=== PATIENT | male | born 1955 | race Caucasian/White ===

== ENCOUNTER 2022-11-15 10:08 | Outpatient (OUT) | payer MEDICARE, SELFPAY ==
[2022-11-16 04:07] LABS: PSA, Free 0.56 ng/mL; Prostate Specific Ag 3.3 ng/mL (0.0-4.0)
== END 2022-11-15 10:09 | disposition home or self-care (01) ==
LOC: LAB 10:11
PROVIDERS: PCP Family Medicine; Visit Provider Urology
DX: N40.0 Benign prostatic hyperplasia without lower urinary tract symptoms (principal)
CPT/HCPCS: 36415; 84153; 84154

== ENCOUNTER 2023-01-31 10:43 | Emergency (ER) | payer MEDICARE, SELFPAY ==
[2023-01-31 10:51] VITALS: BP 132/70; PULSE 71; RESP 18; TEMP 36.7; O2SAT 96; BMI 30.9
--- NOTE | 2023-01-31 11:21 | CT_ITS ---
The [address] [address] Patient Name: GERI ROCA MRN: [id number] date: 1955 Sex: M Assigned Patient Location: ER Current Patient Location: Accession/Order Number: [id number] Exam Date: 01/31/2023 12:00 Report Date: 01/31/2023 12:23 At the request of: STEVE JACKSON Procedure: CT abdomen pelvis wo con EXAM: CT scan of the abdomen and pelvis without contrast. Dose reduction technique used: Automated exposure control and/or adjustment of the mA and/or kV according to patient size and/or use of iterative reconstruction technique. REASON FOR EXAM: left flank pain, r/o stone COMPARISON: None FINDINGS: Left renal pelvis 4 mm stone without hydronephrosis. Enlarged prostate. Multiple hepatic cysts. Small fat-containing left inguinal hernia. Colonic diverticulosis. Focal abdominal aortic ectasia measuring up to 2.7 cm maximal caliber. No ureteral or bladder calculi. No hydronephrosis. Normal appendix. No free fluid in the abdomen or pelvis. No free intraperitoneal air. No dilated or thickened loops of small bowel or colon. Liver, pancreas, spleen, bilateral kidneys, and bilateral adrenal glands are otherwise unremarkable within the limitations of noncontrast CT. No lymphadenopathy in the abdomen or pelvis. Remainder unremarkable. CT/CT abdomen pelvis wo con IMPRESSION: 1. No acute abnormalities in the abdomen or pelvis. 2. Left renal pelvis 4 mm stone without hydronephrosis. Electronically authenticated by: MAGALY BARRON Date: 01/31/2023 12:23
--- NOTE | 2023-01-31 11:22 | ED_ITS ---
HPI - Male Genitourinary General Chief complaint: Abdominal Pain Stated complaint: BACK PAIN Time Seen by Provider: 01/31/23 11:07 Source: patient Mode of arrival: walk-in History of Present Illness HPI Narrative: 67-year-old male presents for left flank pain and blood in the urine. Four days ago he had a minor incident where he stumbled backwards and hit his left back on the sill of a window. he didn't think much of it then. Subsequently he saw some blood in his urine and has some pain in his left flank that radiates to his left testicle. He also complains of a cystitis left upper eyelid. The pain comes and goes. He's never had a kidney stone. Related Data Previous Rx's Medication Instructions Recorded acetaminophen 300 mg-codeine 30 mg 1 tab PO Q6H PRN pain #20 tabs 01/31/23 tablet cephalexin 500 mg capsule 500 mg PO TID 7 days #21 caps 01/31/23 tamsulosin 0.4 mg capsule (Flomax) 0.4 mg PO DAILY #7 caps 01/31/23 Allergies Allergy/AdvReac Type Severity Reaction Status Date / Time No Known Drug Allergies Allergy Verified 01/31/23 10:51 Review of Systems ROS Narrative A ten point review of systems is negative except as noted above. PFSH PFSH Social History Smoking status: Former smoker Exam Narrative Exam Narrative: Nurses note and vital signs reviewed and patient is not hypoxic. General: The patient appears well and in no apparent distress. Patient is resting comfortably on cart. Skin: Warm, dry, no pallor noted. There is no rash noted. Head: Normocephalic, atraumatic Eye: Normal conjunctiva, no drainage Ears, Nose, Mouth, and Throat: oral mucosa is moist. Nares patent. Cardiovascular: Regular Rate and Rhythm Respiratory: Patient is in no distress, no accessory muscle use, lungs are clear to auscultation, no wheezing, rales or rhonchi Back: non-tender, no CVA tenderness there is no bruise rash or abrasion GI: soft and nontender Musculoskeletal: The patient has no evidence of calf tenderness, no pitting edema, symmetrical pulses noted bilaterally Neurological: A&O, normal speech Psychiatric: Cooperative Constitutional Vital Signs, click to edit/add: Last Vital Signs Temp 98.1 F 01/31/23 10:51 Pulse 71 01/31/23 10:51 Resp 18 01/31/23 10:51 BP 132/70 01/31/23 10:51 Pulse Ox 96 01/31/23 10:51 O2 Del Method Room Air 01/31/23 10:51 Course Vital Signs Vital signs: Vital Signs Temperature 98.1 F 01/31/23 10:51 Pulse Rate 71 01/31/23 10:51 Respiratory Rate 18 01/31/23 10:51 Blood Pressure 132/70 01/31/23 10:51 Pulse Oximetry 96 01/31/23 10:51 Oxygen Delivery Method Room Air 01/31/23 10:51 Temperature 98.1 F 01/31/23 10:51 Pulse Rate 71 01/31/23 10:51 Respiratory Rate 01/31/23 10:51 Blood Pressure 132/70 01/31/23 10:51 Pulse Oximetry 96 01/31/23 10:51 Oxygen Delivery Method Room Air 01/31/23 10:51 MDM - Male Genitourinary MDM Narrative Medical decision making narrative: 4 mm renal pelvis stone identified. A few white cells or in the urine and he'll be placed on Keflex and Tylenol No. 3 and Flomax. He'll follow-up with urology. Treatment diagnosis and follow-up were discussed with the patient. Differential Diagnosis Differential diagnosis: Likely urinary tract infection, acute retention of urine and other (kidney stone or nephritis) Lab Data Attestation: I reviewed the patient's lab results. Labs: Lab Results 01/31/23 Range/Units 11:50 WBC 8.3 (4.0-11.0) 10^3/uL RBC 6.12 H (4.70-6.10) 10^6/uL Hgb 18.8 H (14.0-18.0) g/dL Hct 55.2 H (42.0-54.0) % MCV 90.2 (80.0-94.0) fL MCH 30.7 (25.9-34.0) pg MCHC 34.1 (29.9-35.2) g/dL RDW 13.2 (11.0-15.0) % Plt Count 282 (150-450) 10^3/uL MPV 9.7 (9.5-13.5) fL Neut % (Auto) 53.3 (43.0-75.0) % Lymph % (Auto) 33.5 (20.5-60.0) % [place] % (Auto) 10.5 (1.7-12.0) % Eos % (Auto) 1.2 (0.9-7.0) % Baso % (Auto) 1.1 (0.2-2.0) % Neut # (Auto) 4.4 (1.4-6.5) 10^3/uL Lymph # (Auto) 2.8 (1.2-3.8) 10^3/uL [place] # (Auto) 0.9 H (0.3-0.8) 10^3/uL Eos # (Auto) 0.1 (0.0-0.7) 10^3/uL Baso # (Auto) 0.1 (0.0-0.1) 10^3/uL Abs Immat Gran (auto) 0.03 (0.00-0.03) 10^3/uL Imm/Tot Granulo (auto) 0.4 (0.0-0.5) % Sodium 144 (136-145) mmol/L Potassium 4.0 (3.5-5.1) mmol/L Chloride 104 (98-107) mmol/L Carbon Dioxide 26.0 (21.0-32.0) mmol/L Anion Gap 18.0 BUN 23.0 H (7.0-18.0) mg/dL Creatinine 1.13 (0.70-1.30) mg/dL Est GFR ( Amer) >60 (>=60) Est GFR (Non-Af Amer) >60 (>=60) BUN/Creatinine Ratio 20.4 Glucose 94 (74-106) mg/dL Calcium 8.6 (8.5-10.1) mg/dL Urine Color Dk. brown (YELLOW) Urine Clarity Slightly cloudy A (CLEAR) Urine pH 5.0 (5.0-9.0) Ur Specific [place] >=1.030 A (1.005-1.025) Urine Protein 100 A (NEG/TRACE) mg/dL Urine Glucose (UA) Negative (NEGATIVE) mg/dL Urine Ketones Negative (NEGATIVE) mg/dL Urine Occult Blood Large A (NEGATIVE) Urine Nitrite Positive A (NEGATIVE) Urine Bilirubin Negative (NEGATIVE) Urine Urobilinogen 1.0 (0.2-1.0) EU/dL Ur Leukocyte Esterase Negative (NEGATIVE) Urine RBC >100 A (0-2) #/HPF Urine WBC 5-10 A (NONE SEEN) #/HPF Ur Squamous Epith Cells None seen (NONE/RARE) #/LPF Urine Crystals None seen (None Seen) #/HPF Urine Bacteria None seen (NONE SEEN) #/HPF Urine Casts None seen (NONE SEEN) #/LPF Urine Mucus None seen (NONE SEEN) Ur Culture Indicated? Yes Imaging Data CT scan - abdomen: Radiologist's impression: Procedure: CT abdomen pelvis wo con EXAM: CT scan of the abdomen and pelvis without contrast. Dose reduction technique used: Automated exposure control and/or adjustment of the mA and/or kV according to patient size and/or use of iterative reconstruction technique. REASON FOR EXAM: left flank pain, r/o stone COMPARISON: None FINDINGS: Left renal pelvis 4 mm stone without hydronephrosis. Enlarged prostate. Multiple hepatic cysts. Small fat-containing left inguinal hernia. Colonic diverticulosis. Focal abdominal aortic ectasia measuring up to 2.7 cm maximal caliber. No ureteral or bladder calculi. No hydronephrosis. Normal appendix. No free fluid in the abdomen or pelvis. No free intraperitoneal air. No dilated or thickened loops of small bowel or colon. Liver, pancreas, spleen, bilateral kidneys, and bilateral adrenal glands are otherwise unremarkable within the limitations of noncontrast CT. No lymphadenopathy in the abdomen or pelvis. Remainder unremarkable. IMPRESSION: 1. No acute abnormalities in the abdomen or pelvis. 2. Left renal pelvis 4 mm stone without hydronephrosis. Electronically authenticated by: MAGALY BARRON Date: 01/31/2023 Discharge Plan Discharge Chief Complaint: Abdominal Pain Clinical Impression: Calculus of kidney Patient Disposition: Home, Self-Care Time of Disposition Decision: 13:45 Condition: Good Mode of Transportation: Private Vehicle Prescriptions / Home Meds: New acetaminophen-codeine 300-30 mg tablet 1 tab PO Q6H PRN (Reason: pain) Qty: 20 0RF tamsulosin [Flomax] 0.4 mg capsule 0.4 mg PO DAILY Qty: 7 0RF cephalexin 500 mg capsule 500 mg PO TID 7 Days Qty: 21 0RF Instructions: Kidney Stones (ED) Additional Instructions: follow-up with Dr. Rios Stand Alone Forms: Portal Instructions Referrals: Justino Sheriff MD [Primary Care Provider] - 1 week
[2023-01-31 11:57] LABS: Basophils Absolute Auto 0.1 10^3/uL (0.0-0.1); Basophils Percent Auto 1.1 % (0.2-2.0); Eosinophils Absolute Auto 0.1 10^3/uL (0.0-0.7); Eosinophils Percent Auto 1.2 % (0.9-7.0); Hematocrit 55.2 % (42.0-54.0); Hemoglobin 18.8 g/dL (14.0-18.0); Immature Granulocytes Abs Auto 0.03 10^3/uL (0.00-0.03); Immature Granulocytes Pct Auto 0.4 % (0.0-0.5); Lymphocytes Absolute Auto 2.8 10^3/uL (1.2-3.8); Lymphocytes Percent Auto 33.5 % (20.5-60.0); Mean Corpuscular HGB Conc 34.1 g/dL (29.9-35.2); Mean Corpuscular Hemoglobin 30.7 pg (25.9-34.0); Mean Corpuscular Volume 90.2 fL (80.0-94.0); Mean Platelet Volume 9.7 fL (9.5-13.5); Monocytes Absolute Auto 0.9 10^3/uL (0.3-0.8); Monocytes Percent Auto 10.5 % (1.7-12.0); Neutrophils Absolute Auto 4.4 10^3/uL (1.4-6.5); Neutrophils Percent Auto 53.3 % (43.0-75.0); Platelet Count 282 10^3/uL (150-450); Red Blood Count 6.12 10^6/uL (4.70-6.10); Red Cell Distribution Width 13.2 % (11.0-15.0); White Blood Count 8.3 10^3/uL (4.0-11.0)
[2023-01-31 12:00] LABS: Bilirubin Urine NEGATIVE (NEGATIVE); Blood Urine LARGE (NEGATIVE); Color Urine DK. BROWN (YELLOW); Glucose Urine UA NEGATIVE (NEGATIVE); Ketones Urine NEGATIVE (NEGATIVE); Leukocyte Esterase Urine NEGATIVE (NEGATIVE); Nitrite Urine POSITIVE (NEGATIVE); Protein Urine 100 mg/dL (NEG/TRACE); Specific Gravity Urine >=1.030 (1.005-1.025)
[2023-01-31 12:01] LABS: Clarity Urine SLIGHTLY CLOUDY (CLEAR); Urine Microscopic Indicated YES
[2023-01-31 12:09] LABS: Bacteria Urine NONE SEEN #/HPF (NONE SEEN); Cast Seen? NONE SEEN #/LPF (NONE SEEN); Crystals Seen? None Seen #/HPF (None Seen); Mucus Urine NONE SEEN (NONE SEEN); RBC Urine >100 #/HPF (0-2); Squamous Epithelial Cell Urine NONE SEEN #/LPF (NONE/RARE); Urine Culture Indicated YES
[2023-01-31 12:23] LABS: BUN Creatinine Ratio 20.4; Calcium 8.6 mg/dL (8.5-10.1); Chloride 104 mmol/L (98-107); Estimated GFR (African America >60 (>=60); Estimated GFR (Non-African Ame >60 (>=60); Glucose 94 mg/dL (74-106); Sodium 144 mmol/L (136-145)
== END 2023-01-31 13:59 | disposition home or self-care (01) ==
PROVIDERS: Emergency Provider Emergency Medicine; PCP Family Medicine
DX: N20.0 Calculus of kidney (principal); Z87.891 Personal history of nicotine dependence
CPT/HCPCS: 36415; 74176; 80048; 81001; 85025; 87086; 99284

== ENCOUNTER 2023-02-06 13:54 | Emergency (ER) | payer MEDICARE, SELFPAY ==
[2023-02-06 13:57] VITALS: BP 146/90; PULSE 80; RESP 16; TEMP 36.7; O2SAT 98; BMI 31.9
--- NOTE | 2023-02-06 14:17 | ED.GENADUL1 ---
HPI - General Adult General Chief complaint: Back Pain/Injury Stated complaint: FLANK PAIN Time Seen by Provider: 02/06/23 13:59 History of Present Illness HPI narrative: 67-year-old male presents for left flank pain. He was here about six days ago and was diagnosed with a 4 mm kidney stone. He hasn't seen a stone and he hasn't seen his urologist either. He continues to have pain which is moderate. No gross hematuria. Related Data Previous Rx's Medication Instructions Recorded acetaminophen 300 mg-codeine 30 mg 1 tab PO Q6H PRN pain #20 tabs 01/31/23 tablet cephalexin 500 mg capsule 500 mg PO TID 7 days #21 caps 01/31/23 erythromycin 5 mg/gram (0.5 %) eye 1 applic ophthalmic (eye) TID #3.5 01/31/23 ointment grams tamsulosin 0.4 mg capsule (Flomax) 0.4 mg PO DAILY #7 caps 01/31/23 tamsulosin 0.4 mg capsule (Flomax) 0.4 mg PO DAILY #7 caps 02/06/23 Allergies Allergy/AdvReac Type Severity Reaction Status Date / Time No Known Drug Allergies Allergy Verified 01/31/23 10:51 Review of Systems ROS Narrative A ten point review of systems is negative except as noted above. PFSH PFSH Social History Smoking status: Former smoker Exam Narrative Exam Narrative: Nurses note and vital signs reviewed and patient is not hypoxic. General: The patient appears well and in no apparent distress. Patient is resting comfortably on cart. Skin: Warm, dry, no pallor noted. There is no rash noted. Head: Normocephalic, atraumatic Eye: Normal conjunctiva, no drainage Ears, Nose, Mouth, and Throat: oral mucosa is moist. Nares patent. Cardiovascular: Regular Rate and Rhythm Respiratory: Patient is in no distress, no accessory muscle use, lungs are clear to auscultation, no wheezing, rales or rhonchi Back: non-tender, no CVA tenderness bilaterally to percussion. no flank rash GI: no tenderness to palpation, no masses appreciated. No rebound, guarding, or rigidity noted. Musculoskeletal: The patient has no evidence of calf tenderness, no pitting edema, symmetrical pulses noted bilaterally Neurological: A&O, normal speech Psychiatric: Cooperative Constitutional Vital Signs, click to edit/add: Last Vital Signs Temp 98.1 F 02/06/23 13:57 Pulse 72 02/06/23 15:40 Resp 20 02/06/23 15:40 BP 155/87 H 02/06/23 15:40 Pulse Ox 95 02/06/23 15:40 O2 Del Method Room Air 02/06/23 13:57 Course Vital Signs Vital signs: Vital Signs Temperature 98.1 F 02/06/23 13:57 Pulse Rate 80 02/06/23 13:57 Respiratory Rate 16 02/06/23 13:57 Blood Pressure 146/90 H 02/06/23 13:57 Pulse Oximetry 98 02/06/23 13:57 Oxygen Delivery Method Room Air 02/06/23 13:57 Temperature 98.1 F 02/06/23 13:57 Pulse Rate 72 02/06/23 15:40 Respiratory Rate 20 02/06/23 15:40 Blood Pressure 155/87 H 02/06/23 15:40 Pulse Oximetry 95 02/06/23 15:40 Oxygen Delivery Method Room Air 02/06/23 13:57 Medical Decision Making MDM Narrative Medical decision making narrative: the previously identified kidney stone is now in the distal ureter. He was given IV fluids and IV Toradol. He was prescribed Flomax and has pain medicine at home. He'll call his urologist again in the morning for follow-up. He doesn't require admission the hospital at this point. Treatment diagnosis and follow-up were discussed with the patient. Differential Diagnosis Differential Diagnosis: kidney stone, hydronephrosis, urinary tract infection, pyelonephritis Lab Data Lab results reviewed: Yes I reviewed the patient's lab results Labs: Lab Results 02/06/23 Range/Units 14:45 WBC 12.1 H (4.0-11.0) 10^3/uL RBC 5.77 (4.70-6.10) 10^6/uL Hgb 17.6 (14.0-18.0) g/dL Hct 52.3 (42.0-54.0) % MCV 90.6 (80.0-94.0) fL MCH 30.5 (25.9-34.0) pg MCHC 33.7 (29.9-35.2) g/dL RDW 12.7 (11.0-15.0) % Plt Count 291 (150-450) 10^3/uL MPV 9.5 (9.5-13.5) fL Neut % (Auto) 77.3 H (43.0-75.0) % Lymph % (Auto) 13.6 L (20.5-60.0) % [place] % (Auto) 7.8 (1.7-12.0) % Eos % (Auto) 0.3 L (0.9-7.0) % Baso % (Auto) 0.6 (0.2-2.0) % Neut # (Auto) 9.3 H (1.4-6.5) 10^3/uL Lymph # (Auto) 1.6 (1.2-3.8) 10^3/uL [place] # (Auto) 0.9 H (0.3-0.8) 10^3/uL Eos # (Auto) 0.0 (0.0-0.7) 10^3/uL Baso # (Auto) 0.1 (0.0-0.1) 10^3/uL Abs Immat Gran (auto) 0.05 H (0.00-0.03) 10^3/uL Imm/Tot Granulo (auto) 0.4 (0.0-0.5) % Sodium 140 (136-145) mmol/L Potassium 4.1 (3.5-5.1) mmol/L Chloride 103 (98-107) mmol/L Carbon Dioxide 28.8 (21.0-32.0) mmol/L Anion Gap 12.3 BUN 29.0 H (7.0-18.0) mg/dL Creatinine 1.42 H (0.70-1.30) mg/dL Est GFR ( Amer) >60 (>=60) Est GFR (Non-Af Amer) 50 L (>=60) BUN/Creatinine Ratio 20.4 Glucose 107 H (74-106) mg/dL Calcium 9.1 (8.5-10.1) mg/dL Urine Color Lt. yellow (YELLOW) Urine Clarity Slightly cloudy A (CLEAR) Urine pH 5.5 (5.0-9.0) Ur Specific [place] 1.025 (1.005-1.025) Urine Protein Trace (NEG/TRACE) mg/dL Urine Glucose (UA) Negative (NEGATIVE) mg/dL Urine Ketones Negative (NEGATIVE) mg/dL Urine Occult Blood Moderate A (NEGATIVE) Urine Nitrite Negative (NEGATIVE) Urine Bilirubin Negative (NEGATIVE) Urine Urobilinogen 0.2 (0.2-1.0) EU/dL Ur Leukocyte Esterase Negative (NEGATIVE) Urine RBC 0-2 (0-2) #/HPF Urine WBC None seen (NONE SEEN) #/HPF Ur Squamous Epith Cells None seen (NONE/RARE) #/LPF Urine Crystals None seen (None Seen) #/HPF Urine Bacteria None seen (NONE SEEN) #/HPF Urine Casts None seen (NONE SEEN) #/LPF Urine Mucus None seen (NONE SEEN) Ur Culture Indicated? No Imaging Data CT scan - abdomen: Radiologist's impression: Procedure: CT abdomen pelvis wo con CT abdomen pelvis wo con CLINICAL HISTORY: Left flank pain, recent kidney stone COMPARISON: 01/31/2023. TECHNIQUE: No IV contrast axial CT scan from lung bases through symphysis pubis. Lack of IV contrast limits evaluation of solid organs. Oral contrast was not administered. Coronal and sagittal reconstructed images generated. Dose reduction techniques were achieved by using automated exposure control and/or adjustment of mA and/or kV according to patient size and/or use of iterative reconstruction technique. FINDINGS: CT ABDOMEN FINDINGS: Normal heart size with coronary artery calcifications. Lung bases clear. Multiple scattered hepatic cysts. Normal splenic size. Normal-sized adrenal glands. Gallbladder and pancreas unremarkable. No renal stone or hydronephrosis on the right. On the left, the previous 3 mm left renal pelvis calculus has now migrated to the distal ureter and causes is mild left hydronephrosis and perinephric edema. Left renal cyst. 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 GI tract nondilated without obstruction. No significant inflammatory changes or ascites. Appendix is negative. Colonic diverticulosis without diverticulitis. CT PELVIS FINDINGS: Prostatomegaly. Urinary bladder with slight diffuse wall thickening similar to prior possibly related to chronic bladder outlet obstruction changes. Small fatty left inguinal hernia. Lumbar spondylosis without acute bony process. IMPRESSION: Interval migration of previous left renal pelvis calculus now into the left distal ureter with mild left hydronephrosis. Chronic changes: Hepatic and renal cysts. Colonic diverticulosis. Prostatomegaly with mild chronic bladder outlet obstruction changes. Electronically authenticated by: PASCUAL RODRIGUEZ Date: 02/06/2023 15:29 Discharge Plan Discharge Chief Complaint: Back Pain/Injury Clinical Impression: Calculus of kidney Patient Disposition: Home, Self-Care Time of Disposition Decision: 16:22 Condition: Good Prescriptions / Home Meds: New tamsulosin [Flomax] 0.4 mg capsule 0.4 mg PO DAILY Qty: 7 0RF No Action acetaminophen-codeine 300-30 mg tablet 1 tab PO Q6H PRN (Reason: pain) Qty: 20 0RF tamsulosin [Flomax] 0.4 mg capsule 0.4 mg PO DAILY Qty: 7 0RF cephalexin 500 mg capsule 500 mg PO TID 7 Days Qty: 21 0RF erythromycin 5 mg/gram (0.5 %) ointment 1 applic ophthalmic (eye) TID Qty: 3.5 0RF Instructions: Kidney Stones (ED) Additional Instructions: follow-up with your urologist. Call in the morning. Stand Alone Forms: Portal Instructions Referrals: Justino Sheriff MD [Primary Care Provider] - 1 week
--- NOTE | 2023-02-06 14:45 | CT_ITS ---
The [address] [address] Patient Name: GERI ROCA MRN: [id number] date: 1955 Sex: M Assigned Patient Location: ER Current Patient Location: Accession/Order Number: [id number] Exam Date: 02/06/2023 15:00 Report Date: 02/06/2023 15:29 At the request of: STEVE JACKSON Procedure: CT abdomen pelvis wo con CT abdomen pelvis wo con CLINICAL HISTORY: Left flank pain, recent kidney stone COMPARISON: 01/31/2023. TECHNIQUE: No IV contrast axial CT scan from lung bases through symphysis pubis. Lack of IV contrast limits evaluation of solid organs. Oral contrast was not administered. Coronal and sagittal reconstructed images generated. Dose reduction techniques were achieved by using automated exposure control and/or adjustment of mA and/or kV according to patient size and/or use of iterative reconstruction technique. FINDINGS: CT ABDOMEN FINDINGS: Normal heart size with coronary artery calcifications. Lung bases clear. Multiple scattered hepatic cysts. Normal splenic size. Normal-sized adrenal glands. Gallbladder and pancreas unremarkable. No renal stone or hydronephrosis on the right. On the left, the previous 3 mm left renal pelvis calculus has now migrated to the distal ureter and causes is mild left hydronephrosis and perinephric edema. Left renal cyst. 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 GI tract nondilated without obstruction. No significant inflammatory changes or ascites. Appendix is negative. Colonic diverticulosis without diverticulitis. CT PELVIS FINDINGS: Prostatomegaly. Urinary bladder with slight diffuse wall thickening similar to prior possibly related to chronic bladder outlet obstruction changes. Small fatty left inguinal hernia. Lumbar spondylosis without acute bony process. CT/CT abdomen pelvis wo con IMPRESSION: Interval migration of previous left renal pelvis calculus now into the left distal ureter with mild left hydronephrosis. Chronic changes: Hepatic and renal cysts. Colonic diverticulosis. Prostatomegaly with mild chronic bladder outlet obstruction changes. Electronically authenticated by: PASCUAL RODRIGUEZ Date: 02/06/2023 15:29
[2023-02-06 14:57] LABS: Basophils Absolute Auto 0.1 10^3/uL (0.0-0.1); Basophils Percent Auto 0.6 % (0.2-2.0); Eosinophils Percent Auto 0.3 % (0.9-7.0); Hematocrit 52.3 % (42.0-54.0); Hemoglobin 17.6 g/dL (14.0-18.0); Immature Granulocytes Abs Auto 0.05 10^3/uL (0.00-0.03); Immature Granulocytes Pct Auto 0.4 % (0.0-0.5); Lymphocytes Absolute Auto 1.6 10^3/uL (1.2-3.8); Lymphocytes Percent Auto 13.6 % (20.5-60.0); Mean Corpuscular HGB Conc 33.7 g/dL (29.9-35.2); Mean Corpuscular Hemoglobin 30.5 pg (25.9-34.0); Mean Corpuscular Volume 90.6 fL (80.0-94.0); Mean Platelet Volume 9.5 fL (9.5-13.5); Monocytes Absolute Auto 0.9 10^3/uL (0.3-0.8); Monocytes Percent Auto 7.8 % (1.7-12.0); Neutrophils Absolute Auto 9.3 10^3/uL (1.4-6.5); Neutrophils Percent Auto 77.3 % (43.0-75.0); Platelet Count 291 10^3/uL (150-450); Red Blood Count 5.77 10^6/uL (4.70-6.10); Red Cell Distribution Width 12.7 % (11.0-15.0); White Blood Count 12.1 10^3/uL (4.0-11.0)
[2023-02-06 14:58] LABS: Bilirubin Urine NEGATIVE (NEGATIVE); Blood Urine MODERATE (NEGATIVE); Color Urine LT. YELLOW (YELLOW); Glucose Urine UA NEGATIVE (NEGATIVE); Ketones Urine NEGATIVE (NEGATIVE); Leukocyte Esterase Urine NEGATIVE (NEGATIVE); Nitrite Urine NEGATIVE (NEGATIVE); Protein Urine TRACE mg/dL (NEG/TRACE); Specific Gravity Urine 1.025 (1.005-1.025); Urobilinogen Urine 0.2 EU/dL (0.2-1.0); pH Urine 5.5 (5.0-9.0)
[2023-02-06 14:59] LABS: Clarity Urine SLIGHTLY CLOUDY (CLEAR)
[2023-02-06 15:05] LABS: Bacteria Urine NONE SEEN #/HPF (NONE SEEN); Cast Seen? NONE SEEN #/LPF (NONE SEEN); Crystals Seen? None Seen #/HPF (None Seen); Mucus Urine NONE SEEN (NONE SEEN); RBC Urine 0-2 #/HPF (0-2); Squamous Epithelial Cell Urine NONE SEEN #/LPF (NONE/RARE); Urine Culture Indicated NO; WBC Urine NONE SEEN #/HPF (NONE SEEN)
[2023-02-06 15:06] LABS: Anion Gap 12.3; BUN Creatinine Ratio 20.4; Calcium 9.1 mg/dL (8.5-10.1); Carbon Dioxide 28.8 mmol/L (21.0-32.0); Chloride 103 mmol/L (98-107); Estimated GFR (African America >60 (>=60); Estimated GFR (Non-African Ame 50 (>=60); Glucose 107 mg/dL (74-106); Potassium 4.1 mmol/L (3.5-5.1); Sodium 140 mmol/L (136-145)
[2023-02-06] MEDS: 0.9 % SODIUM CHLORIDE 1,000 ML 1000 ML IV (15:35)
[2023-02-06 15:40] VITALS: BP 155/87; PULSE 72; RESP 20; O2SAT 95
[2023-02-06] MEDS: KETOROLAC TROMETHAMINE 30 MG/ML VIAL IVP (16:12)
== END 2023-02-06 17:36 | disposition home or self-care (01) ==
PROVIDERS: Emergency Provider Emergency Medicine; PCP Family Medicine
DX: N20.0 Calculus of kidney (principal); Z87.891 Personal history of nicotine dependence
CPT/HCPCS: 36415; 74176; 80048; 81001; 85025; 96374; 99285

== ENCOUNTER 2023-02-28 08:52 | Outpatient (OUT) | payer MEDICARE, SELFPAY ==
--- NOTE | 2023-02-28 08:58 | US_ITS ---
[address] [address] Patient Name: GERI ROCA MRN: [id number] date: 1955 Sex: M Assigned Patient Location: Current Patient Location: Accession/Order Number: [id number] Exam Date: 02/28/2023 09:01 Report Date: 02/28/2023 10:17 At the request of: NICHOLAS HENDERSON Procedure: US renal BI EXAMINATION: US renal BI HISTORY: Kidney Stones N20.0 COMPARISON: No relevant comparison available. TECHNIQUE: Ultrasound examination was performed of the bladder. FINDINGS: Right Kidney: Normal in size, contour and cortical echotexture. The cortex measures 1.1 cm. No solid cortical mass. Height: 6.4 cm Length: 9.9 cm Width: 4.3 cm Left Kidney: Normal in size, contour and cortical echotexture. The cortex measures 1.3 cm thick. No solid cortical mass. 7 mm echogenic foci upper pole, nonobstructing nephrolith. 3.5 cm anechoic echogenicity upper pole, cortical simple cyst Height: 8.4 cm Length: 10.5 cm Width: 4.8 cm The prostate gland measures 3.3 x 3.3 x 3.7 cm Urinary bladder measures 6.1 x 7.4 x 6.9 cm. The wall measures 6.3 mm possibly related to nondistention US/US renal BI IMPRESSION: Nonobstructing left nephrolithiasis 3.5 cm left renal simple cortical cyst Electronically authenticated by: CASSI AKERS Date: 02/28/2023 10:17
== END 2023-02-28 08:53 | disposition home or self-care (01) ==
PROVIDERS: PCP Family Medicine; Visit Provider Urology
DX: N20.0 Calculus of kidney (principal); N28.1 Cyst of kidney, acquired
CPT/HCPCS: 76775

== ENCOUNTER 2024-02-14 11:39 | Outpatient (OUT) | payer MEDICARE, SELFPAY | END 2024-02-14 11:40 | disposition home or self-care (01) | LOC: PST 11:41 | PROVIDERS: PCP Family Medicine; Visit Provider Surgery | DX: Z01.818 Encounter for other preprocedural examination (principal); Z12.11 Encounter for screening for malignant neoplasm of colon ==

== ENCOUNTER 2024-02-21 08:37 | Day surgery (SDC) | payer MEDICARE, SELFPAY ==
--- OUTSIDE RECORDS SUMMARY | 2024-02-21 08:44 | XMS_ITS | CCD ---
Author Organization [facility] Care Team Providers Care Accounting Supervisor Name Role Phone DR ANYA PETTY Admitting Unavailable MALINDA, DR ANYA Bocanegra Attending Unavailable MALINDA, DR ANYA Bocanegra Primary Care Unavailable MALINDA, DR ANYA Bocanegra Consulting Unavailable MALINDA, DR ANYA Bocanegra Primary Care Unavailable JUAN .THELMA Admitting Unavailable LUE ., THELMA Meraz Attending Unavailable LUE .THELMA M Consulting Unavailable ANYA PETTY Primary Care Physician [phone] JOHN MULLER Attending Unavailable PATRICIA TSAI Referring Unavailable PATRICIA TSAI Attending Unavailable MonicaeThelma MPhilippe Attending Unavailable Lue, Thelma M. Admitting Unavailable Lue Thelma M. Attending Unavailable LueThelma M. Attending Unavailable MonicaeThelma M. Attending Unavailable Monicae Thelma M. Admitting Unavailable MonicaeThelma M. Attending Unavailable ANYA PETTY Attending Unavailable COURT ROGERS Attending Unavailable Allergies Allergy Classification Reported Allergen(s) Allergy Type Date of Onset Reaction(s) Facility HMG-CoA Reductase Inhibitors (statins) (1 source) rosuvastatin; Translations: [rosuvastatin] Drug Allergy Joint pain (finding) [facility] (7 sources) rosuvastatin; Translations: [rosuvastatin] Drug Allergy 3 Joint pain (finding) [facility] (1 source) pitavastatin; Translations: [PITAVASTATIN CALCIUM] Drug Allergy 3 [facility] (1 source) Pravastatin; Translations: [PRAVASTATIN] Drug Allergy 3 [facility] (1 source) sildenafil; Translations: [SILDENAFIL] Drug Allergy 3 [facility] (1 source) pitavastatin; Translations: [Livalo] Drug Allergy [facility] (1 source) Pravastatin; Translations: [Pravachol] Drug Allergy [facility] (1 source) sildenafil; Translations: [Viagra] Drug Allergy [facility] Rep[facility] Medications Current Medications Medication Drug Class(es) Dates Sig (Normalized) Sig (Original) aspirin 81 mg oral tablet (1 source) Platelet Aggregation Inhibitor, Nonsteroidal Anti-inflammatory Drug Start: 04-30-2020 aspirin 81 mg oral tablet Start Date: 04/30/20 Status: Ordered Osteo Bi-Flex (6 sources) Start: 06-10-2020 Osteo Bi-Flex Start Date: 06/10/20 Status: Ordered ezetimibe 10 mg oral tablet (6 sources) Dietary Cholesterol Absorption Inhibitor Start: 04-30-2020 take 1 tablet by mouth at bedtime ezetimibe 10 mg Tab 10 mg = 1 tab(s), Oral, Bedtime Start Date: 04/30/20 Status: Ordered losartan potassium 100 mg oral tablet (6 sources) Angiotensin 2 Receptor Gabriela Start: 04-30-2020 take 1 tablet by mouth once daily losartan 100 mg Tab 100 mg = 1 tab(s), Oral, Daily Start Date: 04/30/20 Status: Ordered 24 hr metoprolol succinate 25 mg extended release oral tablet (1 source) beta-Adrenergic Gabriela Start: 06-10-2020 take 1 tablet by mouth once daily metoprolol 25 mg ER Tab 25 mg = 1 tab(s), Oral, Daily Start Date: 06/10/20 Status: Ordered Vance-3 (6 sources) Start: 06-10-2020 Vance-3 Start Date: 06/10/20 Status: Ordered omeprazole 40 mg oral tablet (1 source) Proton Pump Inhibitor Start: 04-30-2020 take 40 mg by mouth once daily omeprazole 40 mg, Oral, Daily Start Date: 04/30/20 Status: Ordered Problems Problem Classification Problem Date Documented Date Episodic/Chronic Calculus of urinary tract (6 sources) Kidney stone; Translations: [Calculus of kidney] Onset: 03-16-2023 Episodic Cardiac dysrhythmias (2 sources) Ventricular premature depolarization; Translations: [Ventricular premature depolarization] Onset: 08-13-2022 Chronic Cardiac dysrhythmias (8 sources) Palpitations; Translations: [Palpitations] Onset: 05-18-2022 04-30-2020 Episodic Disorders of lipid metabolism (9 sources) Dyslipidemia; Translations: [Mixed hyperlipidemia] Onset: 05-20-2020 04-30-2020 Chronic Esophageal disorders (6 sources) Gastroesophageal reflux disease 04-30-2020 Chronic Essential hypertension (8 sources) Benign essential hypertension; Translations: [Essential (primary) hypertension] Onset: 08-13-2022 04-30-2020 Chronic Genitourinary symptoms and ill-defined conditions (16 sources) Poor stream of urine; Translations: [Urgent desire to urinate] Onset: 03-16-2023 06-10-2020 Episodic Hyperplasia of prostate (20 sources) Benign prostatic hyperplasia with lower urinary tract symptoms; Translations: [Benign prostatic hypertrophy without outflow obstruction] Onset: 05-11-2022 Chronic Nutritional deficiencies (7 sources) Vitamin D deficiency, unspecified; Translations: [Vitamin D deficiency] Onset: 10-22-2021 04-30-2020 Chronic Other diseases of kidney and ureters (1 source) Urinary tract obstruction; Translations: [Other obstructive and reflux uropathy] Onset: 11-16-2023 Episodic Other male genital disorders (6 sources) Phimosis 05-07-2020 Episodic Other screening for suspected conditions (not mental disorders or infectious disease) (12 sources) Encounter for screening for malignant neoplasm of prostate; Translations: [Raised prostate specific antigen] Onset: 10-22-2021 Episodic Unclassified (6 sources) Asymptomatic microscopic hematuria 05-07-2020 Unclassified (6 sources) Long-term current use of aspirin 05-07-2020 Unclassified (7 sources) Obstructive hydronephrosis 03-16-2023 Results Test Name Value Interpretation Reference Range Facility Ambulatory Visit Summaryon 0 11-16-2023 Ambulatory Visit Summary Ambulatory Visit Summary GERI NICKERSON :1955 Visit Date:11/16/2023 Ambulatory Visit Instructions Your Care Team Attending Physician - Juan JONES, Thelma Cazares Primary Care Physician - ANYA PETTY MD This Is Your Medications List chondroitin-glucosami ne (Osteo Bi-Flex) ezetimibe (ezetimibe 10 mg Tab) losartan (losartan 100 mg Tab) omega-3 polyunsaturated fatty acids (Vance-3) Procedures Performed Transrectal biopsy of prostate using ultrasound (US) guidance (05/20/2020), Colonoscopy (2003), Tonsillectomy. What to do next Scheduled Follow-Up Appointments Tuesday 9:45 AM EDT With: Thelma Martinez MD Where: [facility] Man Normal [facility] CHEMISTRYOrdered By: SYSTEM SYSTEM on 11-16-2023 Free PSA [Mass/Vol] 0.6 ng/mL Invalid Interpretation Code [facility] Comment on above: Interpretive Data: T he concentration of free PSA and total PSA determined with assays from different manufacturers can vary due to differences in assay methods and specificity. Values obtained with different can dryer's assays cannot be used interchangeably. The methodology used to obtain this result was chemiluminescence using [employer]'s Access Hybritech PSA reagent and Access Hybritech free PSA reagent. Free PSA/Total PSA [Mass fraction] 15.0 % Low >=25.0% [facility] Prostate specific Ag [Mass/Vol] 4.0 ng/mL High 0.1 - 3.5 ng/mL [facility] Comment on above: Interpretive Data: T he concentration of PSA determined by different manufacturers can vary due to differences in assay methods and reagent specificity. Values obtained from different assay methods cannot be used interchangeably. The methodology used for this result was chemiluminescence using [employer]'s Access Hybritech PSA reagent. PSA Free & Totalon Free PSA/Total PSA [Mass fraction] 15.0 % Low >=25.0 [facility] Comment on above: Performed By: #### 1 [id number] #### [facility] [address] [place] [address] Prostate specific Ag [Mass/Vol] 4.0 ng/mL High 0.1-3.5 [facility] Comment on above: Result Comment: The concentration of PSA determined by different manufacturers can vary due to differences in assay methods and reagent specificity. Values obtained from different assay methods cannot be used interchangeably. The methodology used for this result was chemiluminescence using [employer]'s Access Hybritech PSA reagent. Performed By: #### 1 [id number] #### [facility] [address] [place] [address] Free PSA [Mass/Vol] 0.6 ng/mL Invalid Interpretation Code [facility] Comment on above: Result Comment: The concentration of free PSA and total PSA determined with assays from different manufacturers can vary due to differences in assay methods and specificity. Values obtained with different can dryer's assays cannot be used interchangeably. The methodology used to obtain this result was chemiluminescence using [employer]'s Access Hybritech PSA reagent and Access Hy[employer] free PSA reagent. Performed By: #### 1 [id number] #### [facility] [address] [place] [address] Ambulatory Visit Summaryon 1 05-16-2022 Ambulatory Visit Summary GERI NICKERSON :1955 Visit Date:03/16/2023 Ambulatory Visit Instructions Your Diagnosis Kidney stones Gross hematuria Elevated PSA BPH without urinary obstruction Tests Performed Urnls Dip Stick Auto w/o Microscopy POC [id number] Your Care Team Attending Physician - Juan JONES, Thelma Cazares Primary Care Physician - ANYA PETTY MD This Is Your Medications List Contact prescribing physician if questions or concerns chondroitin-glucosami ne (Osteo Bi-Flex) ezetimibe (ezetimibe 10 mg Tab) losartan (losartan 100 mg Tab) omega-3 polyunsaturated fatty acids (Vance-3) Procedures Performed Transrectal biopsy of prostate using ultrasound (US) guidance (05/20/2020), Colonoscopy (2003), Tonsillectomy. Discharge Vitals Heart Rate (Peripheral) 80 Respiratory Rate 16 Blood Pressure 132/74 Height 175 cm Height 69 in Weight 91 kg Weight 200.2 lb BMI 29.71 What to do next Scheduled Follow-Up Appointments Tuesday 9:45 AM EDT With: Juan JONES, Thelma Cazares Where: [facility] ED Note-Physicianon 03-16-20 ED Note-Physician [id number] .00TIFF [facility] Screenson 03-16-2023 Screens [id number]# 1.00TIFF Normal [facility] Screens [id number] .00TIFF Normal [facility] Urology Office/Clinic Noteon 03-16-2023 Urology Office/Clinic Note Chief Complaint ER f/u HPI Staff Last seen in our office 11/17/22 due to elevated PSA & BPH. Scheduled for 1yr PSA F/T 11/23/23. Pt is here today to f/u to [facility] ER 01/31/23 CC: Lt flank pain and blood in urine. Denied Hx of Kidney Stones. CT ap 01/31/23 NEG C&S DC'd home with Tylenol #20, Tamsulosin 0.4mg #7 & Keflex 500mg TID x7days Pt then returned to [facility] ER 02/06/23 CC: Lt Flank Pain CT ap 02/06/23 Pt was then DC'd home w/Tamsulosin 0.4mg #7 WENDY 02/28/23 Did pass stone around 02/16-02/17 Denies current pain/burning and visible blood in urine. Denies Hx of Kidney Stones. Denies current flank pain. No concerns at this time. History of Present Illness Tests reviewed: reviewed UA and External Records. I have reviewed the previous health record information and history for this patient from external providers and Dr. Martinez I have reviewed and verified the staff HPI to be accurate for this encounter. There have been no associated fever, chills, flank pain, or blood in the urine. Denies any urinary infections since last encounter. Review of Systems PHQ Score Initial Depression Screen Score: 0 ROS - Provider Constitutional: denies weight loss, denies hot flashes. Eyes: denies eye problems. Gastrointestinal: denies nausea, denies vomiting. Cardiovascular: denies chest pain or angina. Integumentary: no dryness Musculoskeletal: denies musculoskeletal symptoms. ENMT: denies otolaryngeal symptoms. Respiratory: no shortness of breath. Heme/Lymph: denies easy bleeding tendency, denies easy bruising tendency. Psychiatric: no confusion, no anxiety. Genitourinary: See HPI. Physical Exam Vitals & Measurements HR: 80(Peripheral) RR: 16 BP: 132/74 HT: 69 in HT: 175 cm WT: 91 kg WT: 200.2 lb BMI: 29.71 General Appearance: alert, no distress, well nourished, well developed male. Assessment/Plan 67 yo M here for follow up ER visit for ureteral stone 1. Kidney stones (N20.0: Calculus of kidney) Pt is here today to f/u to [facility] ER 01/31/23 CC: Lt flank pain and blood in urine. Denies Hx of Kidney Stones. CT ap 01/31/23 - 4mm L renal pelvis stone with hydro, down to distal ureter on repeat CT 02/06/23 upon ER return NEG C&S DC'd home with Tylenol #20, Tamsulosin 0.4mg #7 & Keflex 500mg TID x7days WENDY 02/28/23 - 7mm calcification in the upper pole of the Lt kidney (on CT Scan not present, unlikely new kidney stone) Did pass stone around 02/16-02/17 but unable to catch it. Denies current pain/burning and visible blood in urine. No concerns at this time. Advised pt that the WENDY showed a stone, and it is not truly a stone due to the CT not showing any stones. Counseled pt on the causes of stones. Pt states that he drinks about 16 oz of water a day. We discussed management options moving forward including general dietary modifications, metabolic stone work-up including serum labs and 24-hour urine analysis, continued surveillance with imaging in 6 to 12 months or expectant management. The patient like to proceed with general recommendations for stone prevention: -Maintaining urine output > 2.5 liters a day. -Fluid intake > 3 liters a day, consisting of mostly water, although orange juice and lemonade are also excellent choices in non-obese, non-diabetic patients who have concomitant hypocitraturia. Some experts recommend avoiding dark, sugary soda. -Decrease animal protein intake, in particular: wild game, goose, liver, duck, turkey, chicken, red meat, pork, and seafood should be consumed in moderation. -Restrict sodium to 2.4 grams a day. 1.5 g of sodium a day in those with HTN, Americans, or middle-older aged adults. -Maintain normal calcium oxalate intake from dietary sources. High oxalate intake should be avoided in individuals found to have high urinary oxalate levels on metabolic evaluation. Limit high oxalate folds and drinks, including many nuts, chocolate, spinach rhubarb and soy. 2. Gross hematuria (R31.0: Gross hematuria) Pt had seen blood when he passed a stone. Denies any visible blood otherwise. Pt knows to call our office if he sees blood in his urine outside of stone events. 3. Elevated PSA (R97.20: Elevated prostate specific antigen [PSA]) S/p TRUS/bx was negative, done with Dr. Marley on 05/20/20. PSA 04/15/20 - 5.04 04/22/20 - 3.60 & 13.1% 03/17/21 - 2.70 05/11/22 - 4.09 11/15/22 - 3.30 & 17.0% All questions/concerns were discussed. Pt to call the office if he encounters any issues prior. Pt acknowledges understanding. -Pt due for repeat PSA in 11/2023 4. BPH without urinary obstruction (N40.0: Benign prostatic hyperplasia without lower urinary tract symptoms) IPSS 4(2), PETERSON 24(23) Pt states that he feels he is getting up 2-3x/night since having the stone. Advised pt that he could limit fluids before bed and see if this helps. Pt states he did not feel an improvement in his urinary sxs while on Flomax due to stones. Pt not currently on any BPH medications at this time. (more content not included)... [facility] Comment on above: Result Comment: Elec tronically Signed By: Thelma Martinez MD.br\Date and Time Signed: 03/16/23 20:34 EDT\.br\Electronically Co-Signed By: Argentina Rhoades.br\Date and Time Co-Signed: 03/16/23 11:04 EDT RAD - Ultrasound Reporton RAD - Ultrasound Report [id number] .00TIFF [facility] ED Note-Physicianon 02-04-20 ED Note-Physician [id number] .00CD:127 [facility] Office Visiton 08-13-2022 Follow-up visit [id number] Geri Nickerson R 1955 M Date Provider Department Center 08/13/2022 JOHN VENCES Family History Problem Relation Age of Onset Coronary artery disease Father Coronary artery disease Brother Family Status - Relation Status Age at Father Brother Level of Service:60990 SD OFFICE/OUTPATIENT ESTABLISHED LOW MDM 20-29 MIN Reason for Visit and Comments: echo results [Other] - Patient denies any problems or concerns Normal [facility] Office Visiton 05-21-2022 Follow-up visit [id number] Geri Nickerson 1955 M Date Provider Department Center 05/21/2022 PATRICIA MARR Family History Problem Relation Age of Onset Coronary artery disease Father Coronary artery disease Brother Family Status - Relation Status Age at Father Brother Level of Service:27146 SD OFFICE/OUTPATIENT ESTABLISHED SF MDM 10-19 MIN Reason for Visit and Comments: Hyperlipidemia [182] Hypertension [984486] Normal [facility] CBC AUTO DIFFon 10-16-2021 BASO # 0.1 103/ul Normal 0.0-0.1 [facility] Comment on above: Performed By: #### C BC #### [facility] [address] [place] [address] Dr. Yesenia Stratton Basophils/100 WBC (Bld) 0.7 % Normal 0.2-2.0 [facility] Comment on above: Performed By: #### C BC #### [facility] [address] [place] [address] Dr. Yesenia Stratton EO # 0.1 103/ul Normal 0.0-0.7 [facility] Comment on above: Performed By: #### C BC #### [facility] [address] [place] [address] Dr. Yesenia Stratton Eosinophils/100 WBC (Bld) 1.0 % Normal 0.9-7.0 [facility] Comment on above: Performed By: #### C BC #### [facility] [address] [place] [address] Dr. Yesenia Stratton Erythrocyte distribution width (RBC) [Ratio] 12.7 % Normal 11.0-15.0 [facility] Comment on above: Performed By: #### C BC #### [facility] [address] [place] [address] Dr. Yesenia Stratton Hematocrit (Bld) [Volume fraction] 54.4 % Critically high 42.0-54.0 [facility] Comment on above: Performed By: #### C BC #### [facility] [address] [place] [address] Dr. Yesenia Stratton Hemoglobin (Bld) [Mass/Vol] 18.7 g/dL Critically high 14.0-18.0 [facility] Comment on above: Performed By: #### C BC #### [facility] [address] [place] [address] Dr. Yesenia Stratton IG # 0.05 10e3/ul Critically high 0.00-0.03 [facility] Comment on above: Performed By: #### C BC #### [facility] [address] [place] [address] Dr. Yesenia Stratton IG % 0.6 % Critically high 0.0-0.5 [facility] Comment on above: Performed By: #### C BC #### [facility] [address] [place] [address] Dr. Yesenia Stratton LYMPH # 2.4 103/ul Normal 1.2-3.8 [facility] Comment on above: Performed By: #### C BC #### [facility] [address] [place] [address] Dr. Yesenia Stratton Lymphocytes/100 WBC (Bld) 29.0 % Normal 20.5-60.0 [facility] Comment on above: Performed By: #### C BC #### [facility] [address] [place] [address] Dr. Yesenia Stratton MANUAL DIFF REQ NO Normal [facility] Comment on above: Performed By: #### C BC #### [facility] [address] [place] [address] Dr. Yesenia Stratton MCH (RBC) [Entitic mass] 30.0 pg Normal 25.9-34.0 [facility] Comment on above: Performed By: #### C BC #### [facility] [address] [address] [address] Yesenia Stratton MCHC (RBC) [Mass/Vol] 34.4 g/dL Normal 29.9-35.2 [facility] Comment on above: Performed By: #### C BC #### [facility] [address] [address] [address] Yesenia Stratton MCV (RBC) [Entitic vol] 87.2 fL Normal 80.0-94.0 [facility] Comment on above: Performed By: #### C BC #### [facility] [address] [place] [address] Dr. Yesenia Stratton MONO # 0.8 103/ul Normal 0.3-0.8 [facility] Comment on above: Performed By: #### C BC #### [facility] [address] [place] [address] Dr. Yesenia Stratton Monocytes/100 WBC (Bld) 9.8 % Normal 1.7-12.0 [facility] Comment on above: Performed By: #### C BC #### [facility] [address] [place] [address] Dr. Yesenia Stratton NEUT # 4.8 103/ul Normal 1.4-6.5 [facility] Comment on above: Performed By: #### C BC #### [facility] [address] [place] [address] Dr. Yesenia Stratton Neutrophils/100 WBC (Bld) 58.9 % Normal 43.0-75.0 [facility] Comment on above: Performed By: #### C BC #### [facility] [address] [place] [address] Dr. Yesenia Stratton Platelet mean volume (Bld) [Entitic vol] 9.4 fL Critically low 9.5-13.5 [facility] Comment on above: Performed By: #### C BC #### [facility] [address] [place] [address] Dr. Yesenia Stratton PLT 260 103/ul Normal 150-450 [facility] Comment on above: Performed By: #### C BC #### [facility] [address] [place] [address] Dr. Yesenia Stratton RBC 6.24 106/ul Critically high 4.70-6.10 [facility] Comment on above: Performed By: #### C BC #### [facility] [address] [place] [address] Dr. Yesenia Stratton WBC 8.2 103/ul Normal 4.0-11.0 [facility] Comment on above: Performed By: #### C BC #### [facility] [address] [place] [address] Dr. Yesenia Stratton GLYCOHEMOGLOBIN A1Con 2021 ADA RECOMMENDATION SEE BELOW Normal [facility] Comment on above: Result Comment: ADA RECOMMENDED LIMIT 4.0 - 6.0 ADA THERAPEUTIC TARGET < 7.0 ACTION SUGGESTED > 7.0 Performed By: #### A 1C #### [facility] [address] [place] [address] Dr. Yesenia Stratton Glucose [Mass/Vol] 108 mg/dL Normal [facility] Comment on above: Performed By: #### A 1C #### [facility] [address] [place] [address] Dr. Yesenia Stratton HbA1c (Bld) [Mass fraction] 5.4 % Normal 4.5-6.2 [facility] Comment on above: Performed By: #### A 1C #### [facility] [address] [place] [address] Dr. Yesenia Stratton LIPID PROFILEon 10-16-2021 CHOL-HDL RATIO NORM SEE BELOW Normal [facility] Comment on above: Result Comment: 3.3 - 4.4 LOW RISK 4.4 - 7.1 AVERAGE RISK 7.1 - 11.0 MODERATE RISK >11.0 HIGH RISK Performed By: #### B MP, LIPID, TSH, LIVER #### [facility] [address] [place] [address] Dr. Yesenia Stratton Cholesterol [Mass/Vol] 225 mg/dL Critically high <=200 [facility] Comment on above: Performed By: #### B MP, LIPID, TSH, LIVER #### [facility] [address] [address] [address] Yesenia Stratton Cholesterol in HDL [Mass/Vol] 32 mg/dL Critically low 40-60 [facility] Comment on above: Performed By: #### B MP, LIPID, TSH, LIVER #### [facility] [address] [address] [address] Yesenia Stratton Cholesterol in LDL [Mass/Vol] 150.6 mg/dL Normal [facility] Comment on above: Performed By: #### B MP, LIPID, TSH, LIVER #### [facility] [address] [address] [address] Yesenia Stratton Cholesterol.total/Ch olesterol in HDL [Mass ratio] 7.0 {ratio} Normal [facility] Comment on above: Performed By: #### B MP, LIPID, TSH, LIVER #### [facility] [address] [address] [address] Yesenia Stratton HDL NORMAL > or = 60 mg/dl - LO W CARDIOVASCULAR RISK <40 mg/dl - HIGH CARDIOVASCULAR RISK Normal [facility] Comment on above: Performed By: #### B MP, LIPID, TSH, LIVER #### [facility] [address] [address] [address] Yesenia Stratton LDL CALC NORMAL SEE BELOW Normal [facility] Comment on above: Result Comment: <100 mg/dl OPTIMAL 100 - 129 mg/dl NEAR OR ABOVE OPTIMAL 130 - 159 mg/dl BORDERLINE HIGH 160 - 189 mg/dl HIGH >190 mg/dl VERY HIGH Performed By: #### B MP, LIPID, TSH, LIVER #### [facility] [address] [address] [address] Yesenia Stratton Triglyceride [Mass/Vol] 212 mg/dL Critically high <=150 [facility] Comment on above: Performed By: #### B MP, LIPID, TSH, LIVER #### [facility] [address] [address] [address] Yesenia Stratton VLDL CALC 42.4 mg/dL Normal [facility] Comment on above: Performed By: #### B MP, LIPID, TSH, LIVER #### [facility] [address] [address] [address] Yesenia Stratton LIVER PROFILEon 10-16-2021 Albumin [Mass/Vol] 4.0 g/dL Normal 3.4-5.0 [facility] Comment on above: Performed By: #### B MP, LIPID, TSH, LIVER #### [facility] [address] [address] [address] Yesenia Stratton Albumin/Globulin [Mass ratio] 1.1 {ratio} Normal [facility] Comment on above: Performed By: #### B MP, LIPID, TSH, LIVER #### [facility] [address] [place] [address] Dr. Yesenia Stratton ALP [Catalytic activity/Vol] 61 U/L Normal 46-116 [facility] Comment on above: Performed By: #### B MP, LIPID, TSH, LIVER #### [facility] [address] [place] [address] Dr. Yesenia Stratton ALT [Catalytic activity/Vol] 33 U/L Normal 16-63 [facility] Comment on above: Performed By: #### B MP, LIPID, TSH, LIVER #### [facility] [address] [place] [address] Dr. Yesenia Stratton AST [Catalytic activity/Vol] 22 U/L Normal 15-37 [facility] Comment on above: Performed By: #### B MP, LIPID, TSH, LIVER #### [facility] [address] [address] [address] Yesenia Stratton BILI, CONJUGATED 0.1 mg/dL Normal 0.0-0.2 [facility] Comment on above: Performed By: #### B MP, LIPID, TSH, LIVER #### [facility] [address] [address] [address] Yesenia Stratton Bilirubin [Mass/Vol] 0.9 mg/dL Normal 0.2-1.0 [facility] Comment on above: Performed By: #### B MP, LIPID, TSH, LIVER #### [facility] [address] [place] [address] Dr. Yesenia Stratton Globulin (S) [Mass/Vol] 3.6 g/dL Normal [facility] Comment on above: Performed By: #### B MP, LIPID, TSH, LIVER #### [facility] [address] [place] [address] Dr. Yesenia Stratton Protein [Mass/Vol] 7.6 g/dL Normal 6.4-8.2 [facility] Comment on above: Performed By: #### B MP, LIPID, TSH, LIVER #### [facility] [address] [place] [address] Dr. Yesenia Stratton PROF CHEM 8 (BAS METB)on Anion gap [Moles/Vol] 13.2 mmol/L Normal [facility] Comment on above: Performed By: #### B MP, LIPID, TSH, LIVER #### [facility] [address] [place] [address] Dr. Yesenia Stratton Calcium [Mass/Vol] 9.0 mg/dL Normal 8.5-10.1 [facility] Comment on above: Performed By: #### B MP, LIPID, TSH, LIVER #### [facility] [address] [place] [address] Dr. Yesenia Stratton Chloride [Moles/Vol] 104 mmol/L Normal 98-107 [facility] Comment on above: Performed By: #### B MP, LIPID, TSH, LIVER #### [facility] [address] [place] [address] Dr. Yesenia Stratton CO2 [Moles/Vol] 26.9 mmol/L Normal 21.0-32.0 [facility] Comment on above: Performed By: #### B MP, LIPID, TSH, LIVER #### [facility] [address] [place] [address] Dr. Yesenia Stratton Creatinine [Mass/Vol] 0.98 mg/dL Normal 0.70-1.30 [facility] Comment on above: Performed By: #### B MP, LIPID, TSH, LIVER #### [facility] [address] [place] [address] Dr. Yesenia Stratton EGFR-AF KOSOVAN >60 Normal >=60 [facility] Comment on above: Performed By: #### B MP, LIPID, TSH, LIVER #### [facility] [address] [place] [address] Dr. Yesenia Stratton EGFR-NON AF KOSOVAN >60 Normal >=60 [facility] Comment on above: Performed By: #### B MP, LIPID, TSH, LIVER #### [facility] [address] [place] [address] Dr. Yesenia Stratton Glucose [Mass/Vol] 93 mg/dL Normal 74-106 [facility] Comment on above: Performed By: #### B MP, LIPID, TSH, LIVER #### [facility] [address] [place] [address] Dr. Yesenia Stratton Potassium [Moles/Vol] 4.1 mmol/L Normal 3.5-5.1 [facility] Comment on above: Performed By: #### B MP, LIPID, TSH, LIVER #### [facility] [address] [place] [address] Dr. Yesenia Stratton Sodium [Moles/Vol] 140 mmol/L Normal 136-145 [facility] Comment on above: Performed By: #### B MP, LIPID, TSH, LIVER #### [facility] [address] [place] [address] Dr. Yesenia Stratton Urea nitrogen [Mass/Vol] 20.0 mg/dL Critically high 7.0-18.0 [facility] Comment on above: Performed By: #### B MP, LIPID, TSH, LIVER #### [facility] [address] [place] [address] Dr. Yesenia Stratton Urea nitrogen/Creatinine [Mass ratio] 20.4 mg/mg Normal [facility] Comment on above: Performed By: #### B MP, LIPID, TSH, LIVER #### [facility] [address] [place] [address] Dr. Yesenia Stratton TSHon 10-16-2021 TSH 2.533 uIU/mL Normal 0.358-3.740 [facility] Comment on above: Performed By: #### B MP, LIPID, TSH, LIVER #### [facility] [address] [place] [address] Dr. Yesenia Stratton TSH RANGE SEE BELOW Normal [facility] Comment on above: Result Comment: <0.3 4 UIU/ml HYPERTHYROID 0.34-5.60 UIU/ml EUTHYROID >5.60 UIU/ml HYPOTHYROID Performed By: #### B MP, LIPID, TSH, LIVER #### [facility] [address] [place] [address] Dr. Yesenia Stratton VITAMIN D 25 OHon 10-16-2021 VIT D 25-OH 38.2 ng/mL Normal [facility] Comment on above: Performed By: #### V ITKAILEE, PSASC #### [facility] [address] [place] [address] Dr. Yesenia Stratton VIT D RANGES SEE BELOW Normal [facility] Comment on above: Result Comment: <20 ng/mL Vit D deficient 20 - <30 ng/mL Vit D insufficient 30 - 100 ng/mL Vit D sufficient >100 ng/mL Potential Toxicity Performed By: #### V ITKAILEE, PSASC #### [facility] [address] [place] [address] Dr. Yesenia Stratton Aerobic Cultureon 01-12-2021 Aerobic Culture Reason for Exam Abscess Back Result Tab Codes Light Normal Skin Jayde 2 Days Reason for Exam Abscess Back No Anaerobes Isolated 3 Days Reason for Exam Abscess Back Gram Stain Result No Bacteria Seen PERFORMED BY: [place] [address] PATHOLOGIST [employer]ERPRINT TECHNICIAN CRISTAL CAIN M.D. [facility] Comment on above: Performed By: #### A HERMES NEWELL #### [id number] [facility] Gram Stainon 01-12-2021 Microscopic observation Gram stain Nom (Unsp spec) Reason for Exam Abscess Back Gram Stain Result No Bacteria Seen PERFORMED BY: [place] [address] PATHOLOGIST FINGERPRINT TECHNICIAN CRISTAL CAIN M.D. [facility] Comment on above: Performed By: #### A HERMES NEWELL #### [id number] [facility] Vital Signs Date Time Vital Sign Value Performing Clinician Luiza talavera 11-23-2023 09:55-0400 Diastolic blood pressure 84 mm[Hg] Thelma Lue [facility] 11-23-2023 09:55-0400 Heart rate 78 /min Thelma Lue [facility] 11-23-2023 09:55-0400 Systolic blood pressure 138 mm[Hg] Thelma Lue [facility] 03-16-2023 09:55-0400 Blood Pressure Location Thelma Lue [facility] 03-16-2023 09:55-0400 Diastolic blood pressure 74 mm[Hg] Thelma Lue [facility] 03-16-2023 09:55-0400 Heart rate 80 /min Thelma Lue [facility] 03-16-2023 09:55-0400 Respiratory rate 16 /min Thelma Lue [facility] 03-16-2023 09:55-0400 Systolic blood pressure 132 mm[Hg] Thelma Lue [facility] 11-17-2022 10:16-0400 Blood Pressure Location Thelma Lue [facility] 11-17-2022 10:16-0400 Diastolic blood pressure 78 mm[Hg] Thelma Lue [facility] 11-17-2022 10:16-0400 Heart rate 78 /min Thelma Lue [facility] 11-17-2022 10:16-0400 Respiratory rate 16 /min Thelma Juan [facility] 11-17-2022 10:16-0400 Systolic blood pressure 132 mm[Hg] Thelma Juan [facility] Encounters Encounter Date Encounter Type Care Provider Facility Start: 02-06-2024 End: 02-06-[address] Not Available Start: 01-27-2024 End: 01-27-2024 ambulatory ANYA JOHANNAPeter Not Available Start: 11-23-2023 ambulatory Thelma M. Lue Facility:[facility] Start: 11-23-2023 End: 11-23-2023 Patient encounter procedure Thelma M. Lue [facility] Start: 11-16-2023 End: 11-16-2023 Lab Drop off Thelma M. Lue [facility] Start: 11-16-2023 End: 11-16-2023 ambulatory Thelma M. Lue Facility:[facility] Start: 11-16-2023 End: 11-16-2023 Patient encounter procedure Thelma M. Lue [facility] Start: 03-16-2023 End: 03-16-2023 ambulatory Htelma M. Lue Facility:[facility] Start: 03-16-2023 End: 03-16-2023 Patient encounter procedure Thelma M. Lue [facility] Start: 11-17-2022 End: 11-17-2022 Patient encounter procedure Thelma M. Lue [facility] Start: 08-13-2022 End: 08-13-2022 ambulatory JOHN GEOVANNY [facility] Start: 06-18-2022 End: 06-18-2022 ambulatory [facility] Start: 05-21-2022 End: 05-21-2022 ambulatory [facility] Start: 05-19-2022 End: 05-19-2022 Patient encounter procedure Thelma Martinez [facility] Start: 05-11-2022 End: 05-12-[address] ANYA PETTY Facility:[facility] Start: 10-22-2021 Encounter for genera l adult medical examination without abnormal findings DR ANYA PETTY [facility] Start: 10-16-2021 End: 10-17-[address] ANYA PETTY Facility:[facility] Start: 10-16-2021 End: 10-17-2021 Encounter for general adult medical examination without abnormal findings DR ANYA PETTY Facility:[facility] Procedures Date Procedure Procedure Detail Performing Clinician Start: 05-11-[address] ANYA MCKEON Comment on above: Performed By: #### P SAD #### [facility] [address] [place] [address] Dr. Yesenia Stratton Start: 10-16-[address] ANYA MCKEON Comment on above: Performed By: #### V ITAD, PSASC #### [facility] [address] [place] [address] Dr. Yesenia Stratton Start: 05-20-2020 Transrectal biopsy o f prostate using ultrasound guidance Thelma Martinez Start: 05-16-2003 Colonoscopy Thelma Martinez Tonsillectomy Thelma Martinez Immunizations Immunization Date Immunization Notes Care Provider [facility] 03-06-2021 influenza virus vaccine, unspecified formulation Thelma Lue [facility] 03-06-2021 SARS-CoV-2 (COVID-19 ) mRNA BNT-162b2 vax Thelma Lue [facility] 07-23-2020 SARS-CoV-2 (COVID-19 ) Ad26 vaccine, recombinant Thelma Lue [facility] 02-14-2020 SARS-CoV-2 (COVID-19 ) Ad26 vaccine, recombinant Thelma Lue [facility] Payers Date Payer Category Payer Medicare [id number] 2022 Unknown [id number] 2022 Medicare [id number] 1955 Unknown [id number] 2.16.84 [id number] 1955 Unknown [id number] 2.16.84 [id number] 1957 Unknown [id number] 2.16.8 [id number] 1957 Unknown [id number] 2.16.8 [id number] 1957 Unknown [id number] 2.16.8 [id number] 1957 Unknown [id number] 2.16.8 [id number] 1957 Unknown [id number] 2.16.84 [id number] 1957 Unknown [id number] 2.16.84 [id number] Unknown [id number] Social History Date Type Detail Facility Start: 06-10-2020 End: 11-23-2023 Tobacco smoking status Ex-smoker (finding) [facility] Sex Assigned At Male [facility] Tobacco smoking status Never [facility] Functional Status Date Assessment Result Facility 11-23-2023 Functional Status N/A [facility] 03-16-2023 Functional Status N/A [facility] 11-17-2022 Functional Status N/A [facility] Clinical Notes 05-19-2022 to 11-23-2023 Laboratory Note Date & Type Note Facility 11-23-2023 Hospital Discharge instructions Patient Education 11/23/2023 10:14:29 Prostate Cancer Screening Prostate Cancer Screening Prostate cancer screening is testing that is done to check for the presence of prostate cancer in men. The prostate gland is a walnut-sized gland that is located below the bladder and in front of the rectum in males. The function of the prostate is to add fluid to semen during ejaculation. Prostate cancer is one of the most common types of cancer in men. Who should have prostate cancer screening? Screening recommendations vary based on age and other risk factors, as well as between the professional organizations who make the recommendations. In general, screening is recommended if: You are age 50 to 70 and have an average risk for prostate cancer. You should talk with your health care provider about your need for screening and how often screening should be done. Because most prostate cancers are slow growing and will not cause , screening in this age group is generally reserved for men who have a 10- to 15-year life expectancy. You are younger than age 50, and you have these risk factors: ?Having a father, brother, or uncle who has been diagnosed with prostate cancer. The risk is higher if your family member's cancer occurred at an early age or if you have multiple family members with prostate cancer at an early age. ?Being a male who is Black or is of [place] or sub-Saharan descent. In general, screening is not recommended if: You are younger than age 40. You are between the ages of 40 and 49 and you have no risk factors. You are 70 years of age or older. At this age, the risks that screening can cause are greater than the benefits that it may provide. If you are at high risk for prostate cancer, your health care provider may recommend that you have screenings more often or that you start screening at a younger age. How is screening for prostate cancer done? The recommended prostate cancer screening test is a blood test called the prostate-specific antigen (PSA) test. PSA is a protein that is made in the prostate. As you age, your prostate naturally produces more PSA. Abnormally high PSA levels may be caused by: Prostate cancer. An enlarged prostate that is not caused by cancer (benign prostatic hyperplasia, or BPH). This condition is very common in older men. A prostate gland infection (prostatitis) or urinary tract infection. Certain medicines such as male hormones (like testosterone) or other medicines that raise testosterone levels. A rectal exam may be done as part of prostate cancer screening to help provide information about the size of your prostate gland. When a rectal exam is performed, it should be done after the PSA level is drawn to avoid any effect on the results. Depending on the PSA results, you may need more tests, such as: A physical exam to check the size of your prostate gland, if not done as part of screening. Blood and imaging tests. A procedure to remove tissue samples from your prostate gland for testing (biopsy). This is the only way to know for certain if you have prostate cancer. What are the benefits of prostate cancer screening? Screening can help to identify cancer at an early stage, before symptoms start and when the cancer can be treated more easily. There is a small chance that screening may lower your risk of dying from prostate cancer. The chance is small because prostate cancer is a slow-growing cancer, and most men with prostate cancer from a different cause. What are the risks of prostate cancer screening? The main risk of prostate cancer screening is diagnosing and treating prostate cancer that would never have caused any symptoms or problems. This is called overdiagnosisand overtreatment. PSA screening cannot tell you if your PSA is high due to cancer or a different cause. A prostate biopsy is the only procedure to diagnose prostate cancer. Even the results of a biopsy may not tell you if your cancer needs to be treated. Slow-growing prostate cancer may not need any treatment other than monitoring, so diagnosing and treating it may cause unnecessary stress or other side effects. Questions to ask your health care provider When should I start prostate cancer screening? What is my risk for prostate cancer? How often do I need screening? What type of screening tests do I need? How do I get my test results? What do my results mean? Do I need treatment? Where to find more information [employer] [place] [employer]: www.cancer.org [place] [employer]: www.auanet.org Contact a health care provider if: You have difficulty urinating. You have pain when you urinate or ejaculate. You have blood in your urine or semen. You have pain in your back or in the area of your prostate. Summary Prostate cancer is a common type of cancer in men. The prostate gland is located below the bladder and in front of the rectum. This gland adds fluid to semen during ejaculation. Prostate cancer screening may identify cancer at an early stage, when the cancer can be treated more easily and is less likely to have spread to other areas of the body. The prostate-specific antigen (PSA) test is the recommended screening test for prostate cancer, but it has associated risks. Discuss the risks and benefits of prostate cancer screening with your health care provider. If you are age 70 or older, the risks that screening can cause are greater than the benefits that it may provide. This information is not intended to replace advice given to you by your health care provider. Make sure you discuss any questions you have with your health care provider. Document Revised: 10/26/2021 Document Reviewed: 10/26/2021 [employer] Patient Education 2022 [employer] Follow Up Care 11/17/2022 10:47:13 With:Thelma Martinez MD, URL, URO Address: [address] [place] [address]- [phone] When: Unknown [facility] 02-04-2023 Hospital Discharge instructions Follow Up Care 02/04/2023 14:44:46 With:Thelma Martinez MD, URL, URO Address: When: Unknown Comments:Appt in 11/2023 [facility] 11-17-2022 Hospital Discharge instructions Patient Education 11/17/2022 10:44:09 Prostate Cancer Screening Prostate Cancer Screening Prostate cancer screening is testing that is done to check for the presence of prostate cancer in men. The prostate gland is a walnut-sized gland that is located below the bladder and in front of the rectum in males. The function of the prostate is to add fluid to semen during ejaculation. Prostate cancer is one of the most common types of cancer in men. Who should have prostate cancer screening? Screening recommendations vary based on age and other risk factors, as well as between the professional organizations who make the recommendations. In general, screening is recommended if: You are age 50 to 70 and have an average risk for prostate cancer. You should talk with your health care provider about your need for screening and how often screening should be done. Because most prostate cancers are slow growing and will not cause , screening in this age group is generally reserved for men who have a 10- to 15-year life expectancy. You are younger than age 50, and you have these risk factors: ?Having a father, brother, or uncle who has been diagnosed with prostate cancer. The risk is higher if your family member's cancer occurred at an early age or if you have multiple family members with prostate cancer at an early age. ?Being a male who is Black or is of [place] or sub-Saharan descent. In general, screening is not recommended if: You are younger than age 40. You are between the ages of 40 and 49 and you have no risk factors. You are 70 years of age or older. At this age, the risks that screening can cause are greater than the benefits that it may provide. If you are at high risk for prostate cancer, your health care provider may recommend that you have screenings more often or that you start screening at a younger age. How is screening for prostate cancer done? The recommended prostate cancer screening test is a blood test called the prostate-specific antigen (PSA) test. PSA is a protein that is made in the prostate. As you age, your prostate naturally produces more PSA. Abnormally high PSA levels may be caused by: Prostate cancer. An enlarged prostate that is not caused by cancer (benign prostatic hyperplasia, or BPH). This condition is very common in older men. A prostate gland infection (prostatitis) or urinary tract infection. Certain medicines such as male hormones (like testosterone) or other medicines that raise testosterone levels. A rectal exam may be done as part of prostate cancer screening to help provide information about the size of your prostate gland. When a rectal exam is performed, it should be done after the PSA level is drawn to avoid any effect on the results. Depending on the PSA results, you may need more tests, such as: A physical exam to check the size of your prostate gland, if not done as part of screening. Blood and imaging tests. A procedure to remove tissue samples from your prostate gland for testing (biopsy). This is the only way to know for certain if you have prostate cancer. What are the benefits of prostate cancer screening? Screening can help to identify cancer at an early stage, before symptoms start and when the cancer can be treated more easily. There is a small chance that screening may lower your risk of dying from prostate cancer. The chance is small because prostate cancer is a slow-growing cancer, and most men with prostate cancer from a different cause. What are the risks of prostate cancer screening? The main risk of prostate cancer screening is diagnosing and treating prostate cancer that would never have caused any symptoms or problems. This is called overdiagnosisand overtreatment. PSA screening cannot tell you if your PSA is high due to cancer or a different cause. A prostate biopsy is the only procedure to diagnose prostate cancer. Even the results of a biopsy may not tell you if your cancer needs to be treated. Slow-growing prostate cancer may not need any treatment other than monitoring, so diagnosing and treating it may cause unnecessary stress or other side effects. Questions to ask your health care provider When should I start prostate cancer screening? What is my risk for prostate cancer? How often do I need screening? What type of screening tests do I need? How do I get my test results? What do my results mean? Do I need treatment? Where to find more information [employer] [place] [employer]: www.cancer.org [place] [employer]: www.auanet.org Contact a health care provider if: You have difficulty urinating. You have pain when you urinate or ejaculate. You have blood in your urine or semen. You have pain in your back or in the area of your prostate. Summary Prostate cancer is a common type of cancer in men. The prostate gland is located below the bladder and in front of the rectum. This gland adds fluid to semen during ejaculation. Prostate cancer screening may identify cancer at an early stage, when the cancer can be treated more easily and is less likely to have spread to other areas of the body. The prostate-specific antigen (PSA) test is the recommended screening test for prostate cancer, but it has associated risks. Discuss the risks and benefits of prostate cancer screening with your health care provider. If you are age 70 or older, the risks that screening can cause are greater than the benefits that it may provide. This information is not intended to replace advice given to you by your health care provider. Make sure you discuss any questions you have with your health care provider. Document Revised: 10/26/2021 Document Reviewed: 10/26/2021 Decalog Patient Education 2022 [employer] Follow Up Care 05/19/2022 12:21:58 With:Juan JONES, Thelma Cazares, URL, URO Address: When:Within 1 Year(s) Comments:w/ PSA F&T [facility] 08-13-2022 Note [facility] Consult Note Reason for visit: Follow up HPI: Geri Nickerson is a 67 y.o. year old with past medical history of hypertension, palpitations, hld. His PCP is managing his hypertension and hyperlipidemia and taking zetia every other day. He had an event monitor past that showed over 8% burden of PVCs. The plan at that time was to consider repeat Holter monitor in 1 year with echo. He was not seen patient in 2 years but he states he has not noticed palpitations in several months, even while not taking metoprolol. He was seen by Patricia shah nurse practitioner and an echocardiogram was done on 06/18/2022 showed normal EF with no evidence of LV dilatation. His blood pressure today is mildly elevated. he takes his dog out for a walk and states that he sleeps only 7 hours and had TERSEITA screening done about 5 years ago which was negative. Review of Systems Constitutional: Negative for malaise/fatigue. Cardiovascular: Negative for chest pain, dyspnea on exertion, leg swelling, near-syncope, palpitations and syncope. Respiratory: Negative for shortness of breath and sleep disturbances due to breathing. Neurological: Negative for dizziness, light-headedness and weakness. All other systems reviewed and are negative. PMH: Past Medical History: Diagnosis Date GERD (gastroesophageal reflux disease) High cholesterol PSH: No past surgical history on file. SH: Social Determinants of Health Tobacco Use: Medium Risk Smoking Tobacco Use: Former Smokeless Tobacco Use: Never Passive Exposure: Not on file Alcohol Use: Not on file Financial Resource Strain: Not on file Food Insecurity: Not on file Transportation Needs: Not on file Physical Activity: Not on file Stress: Not on file Social Connections: Not on file Intimate Partner Violence: Not on file Depression: Not on file Housing Stability: Not on file Allergies: Allergies Allergen Reactions Pitavastatin Calcium Pravastatin Rosuvastatin Sildenafil Weight: No results found for: PTWEIGHT Meds: Current Outpatient Medications on File Prior to Visit Medication Sig Dispense Refill ezetimibe (Zetia) 10 mg tablet every other day. Patient cut in half losartan (Cozaar) 100 mg tablet in the morning. omeprazole (PriLOSEC) [address] capsule 1 capsule every other day. No current facility-administered medications on file prior to visit. Physical Exam: Constitutional General Appearance: well-nourished, well-developed, appears stated age Level of Distress: comfortable Psychiatric Mental Status: alert, normal affect Orientation: oriented to time, place, and person Insight: good judgement Eyes Lids and Conjunctivae: non-injected, no xanthelasma ENMT Ears: no lesions on external ear Nose: no lesions on external nose Oropharynx: no cyanosis, no pallor Neck Neck: supple, trachea midline Carotid Arteries: bilateral normal upstroke, no bruits Jugular Veins: normal jugular venous pressure Thyroid: not enlarged Lungs Respiratory Effort: unlabored Chest Exam: normal curvature, no thoracic deformity Auscultation: clear, no wheezing, no rales, no rhonchi Cardiovascular Rate And Rhythm: regular Heart Sounds: normal S1, normal s2, no gallop Systolic Murmur: not heard Diastolic Murmur: not heard Extremities: no cyanosis, no edema, no peripheral signs of emboli Peripheral Pulses Radial Pulse: normal Abdomen Inspection and Palpation: soft, non distended, no bruit, non tender Musculoskeletal Inspection: no joint swelling Neurologic Gait: normal gait Skin Inspection and Palpation: warm and dry Nails: no clubbing Labs: HE will have PCP send to us, states he has not had any concerns per his PCP and cholesterol is being managed by PCP EKG: No results found for this or any previous visit (from the past 4464 hour(s)). Echo: 06/18/22 Stress test: Coronary angiogram: @CATH@ Diagnostic Imaging: No images are attached to the encounter. Assessment and Plan: - PVC: patient has good no evidence of cardiomyopathy or symptoms associated with this. we will continue with conservative management of observation. he will need a yearly echo to ensure there is no cardiomyopathy or LV dilatation. - HTN: I have advised the patient to keep a blood pressure log of 8 AM 2 PM and 8 PM readings and if the numbers are elevated then to consider adjustment of antihypertensive drugs. John Muller MD Cardiac Electrophysiology [facility] 05-24-2022 Note -they have beccome i nfrequent, states he cannot even recall last time he felt that -never took BB medications -will order echo to assess for any CM or LA enlargement per previous plan for follow up [facility] 05-21-2022 Note ID Cardiology Consul t Note Reason for visit: annual visit, last seen by Dr. Muller 05/2020 HPI: Geri Nickerson is a 66 y.o. year old with past medical history of hypertension, palpitations, hld. His PCP is managing his hypertension and hyperlipidemia and taking zetia every other day. he states he has had labs done recently and will have them sent over to our office. He states he never took metoprolol. He had an event monitor past that showed over 8% burden of PVCs. The plan at that time was to consider repeat Holter monitor in 1 year with echo. We have not seen patient in 2 years but he states he has not noticed palpitations in several months, even while not taking metoprolol. I discussed with him since he has not had any palpitations since he was previously seen that I would at least continue with plan for ECHO to assess for CM and any LA enlargement Review of Systems Constitutional: Negative for malaise/fatigue. Cardiovascular: Negative for chest pain, dyspnea on exertion, leg swelling, near-syncope, palpitations and syncope. Respiratory: Negative for shortness of breath and sleep disturbances due to breathing. Neurological: Negative for dizziness, light-headedness and weakness. All other systems reviewed and are negative. PMH: Past Medical History: Diagnosis Date GERD (gastroesophageal reflux disease) High cholesterol PSH: No past surgical history on file. SH: Social Determinants of Health Tobacco Use: Medium Risk Smoking Tobacco Use: Former Smokeless Tobacco Use: Never Passive Exposure: Not on file Alcohol Use: Not on file Financial Resource Strain: Not on file Food Insecurity: Not on file Transportation Needs: Not on file Physical Activity: Not on file Stress: Not on file Social Connections: Not on file Intimate Partner Violence: Not on file Depression: Not on file Housing Stability: Not on file Allergies: Allergies Allergen Reactions Pitavastatin Calcium Pravastatin Rosuvastatin Sildenafil Weight: No results found for: PTWEIGHT Meds: Current Outpatient Medications on File Prior to Visit Medication Sig Dispense Refill ezetimibe (Zetia) 10 mg tablet every other day. losartan (Cozaar) 100 mg tablet in the morning. omeprazole (PriLOSEC) [address] capsule 1 capsule every other day. [DISCONTINUED] aspirin 81 mg EC tablet in the morning. [DISCONTINUED] metoprolol tartrate (Lopressor) 25 mg tablet metoprolol tartrate 25 mg tablet TAKE 1/2 TABLET BY MOUTH TWICE DAILY No current facility-administered medications on file prior to visit. Physical Exam: Constitutional General Appearance: well-nourished, well-developed, appears stated age Level of Distress: comfortable Psychiatric Mental Status: alert, normal affect Orientation: oriented to time, place, and person Insight: good judgement Eyes Lids and Conjunctivae: non-injected, no xanthelasma ENMT Ears: no lesions on external ear Nose: no lesions on external nose Oropharynx: no cyanosis, no pallor Neck Neck: supple, trachea midline Carotid Arteries: bilateral normal upstroke, no bruits Jugular Veins: normal jugular venous pressure Thyroid: not enlarged Lungs Respiratory Effort: unlabored Chest Exam: normal curvature, no thoracic deformity Auscultation: clear, no wheezing, no rales, no rhonchi Cardiovascular Rate And Rhythm: regular Heart Sounds: normal S1, normal s2, no gallop Systolic Murmur: not heard Diastolic Murmur: not heard Extremities: no cyanosis, no edema, no peripheral signs of emboli Peripheral Pulses Radial Pulse: normal Abdomen Inspection and Palpation: soft, non distended, no bruit, non tender Musculoskeletal Inspection: no joint swelling Neurologic Gait: normal gait Skin Inspection and Palpation: warm and dry Nails: no clubbing Labs: HE will have PCP send to us, states he has not had any concerns per his PCP and cholesterol is being managed by PCP EKG: No results found for this or any previous visit (from the past 4464 hour(s)). Echo: Pending Stress test: Coronary angiogram: @CATH@ Diagnostic Imaging: No images are attached to the encounter. Assessment and Plan: Intermittent palpitations -they have beccome infrequent, states he cannot even recall last time he felt that -never took BB medications -will order echo to assess for any CM or LA enlargement per previous plan for follow up Will have him follow up in 3 months with results of echo Patricia Tsai NP Cardiac Electrophysiology [facility] 05-19-2022 Hospital Discharge instructions Patient Education 05/19/2022 12:18:53 Prostate Cancer Screening Prostate Cancer Screening The prostate is a walnut-sized gland that is located below the bladder and in front of the rectum in males. The function of the prostate (prostate gland) is to add fluid to semen during ejaculation. Prostate cancer is the second most common type of cancer in men. A screening test for cancer is a test that is done before cancer symptoms start. Screening can help to identify cancer at an early stage, when the cancer can be treated more easily. The recommended prostate cancer screening test is a blood test called the prostate-specific antigen (PSA) test. PSA is a protein that is made in the prostate. As you age, your prostate naturally produces more PSA. Abnormally high PSA levels may be caused by: Prostate cancer. An enlarged prostate that is not caused by cancer (benign prostatic hyperplasia, BPH). This condition is very common in older men. A prostate gland infection (prostatitis). Medicines to assist with hair growth, such as finasteride. Depending on the PSA results, you may need more tests, such as: A physical exam to check the size of your prostate gland. Blood and imaging tests. A procedure to remove tissue samples from your prostate gland for testing (biopsy). Who should have screening? Screening recommendations vary based on age. If you are younger than age 40, screening is not recommended. If you are age 40 54 and you have no risk factors, screening is not recommended. If you are younger than age 55, ask your health care provider if you need screening if you have one of these risk factors: ?Being of -[place] descent. ?Having a family history of prostate cancer. If you are age 55 69, talk with your health care provider about your need for screening and how often screening should be done. If you are older than age 70, screening is not recommended. This is because the risks that screening can cause are greater than the benefits that it may provide (risks outweigh the benefits). If you are at high risk for prostate cancer, your health care provider may recommend that you have screenings more often or start screening at a younger age. You may be at high risk if you: Are older than age 55. Are -[place]. Have a father, brother, or uncle who has been diagnosed with prostate cancer. The risk may be higher if your family member's cancer occurred at an early age. What are the benefits of screening? There is a small chance that screening may lower your risk of dying from prostate cancer. The chance is small because prostate cancer is typically a slow-growing cancer, and most men with prostate cancer from a different cause. What are the risks of screening? The main risk of prostate cancer screening is diagnosing and treating prostate cancer that would never have caused any symptoms or problems (overdiagnosis and overtreatment). PSA screening cannot tell you if your PSA is high due to cancer or a different cause. A prostate biopsy is the only procedure to diagnose prostate cancer. Even the results of a biopsy may not tell you if your cancer needs to be treated. Slow-growing prostate cancer may not need any treatment other than monitoring, so diagnosing and treating it may cause unnecessary stress or other side effects. A prostate biopsy may also cause: Infection or fever. A false negative. This is a result that shows that you do not have prostate cancer when you actually do have prostate cancer. Questions to ask your health care provider When should I start prostate cancer screening? What is my risk for prostate cancer? How often do I need screening? What type of screening tests do I need? How do I get my test results? What do my results mean? Do I need treatment? Contact a health care provider if: You have difficulty urinating. You have pain when you urinate or ejaculate. You have blood in your urine or semen. You have pain in your back or in the area of your prostate. You have trouble getting or maintaining an erection (erectile dysfunction, ED). Summary Prostate cancer is a common type of cancer in men. The prostate (prostate gland) is located below the bladder and in front of the rectum. This gland adds fluid to semen during ejaculation. Prostate cancer screening may identify cancer at an early stage, when the cancer can be treated more easily. The prostate-specific antigen (PSA) test is the recommended screening test for prostate cancer. Discuss the risks and benefits of prostate cancer screening with your health care provider. If you are age 70 or older, screening is likely to lead to more risks than benefits (risks outweigh the benefits). This information is not intended to replace advice given to you by your health care provider. Make sure you discuss any questions you have with your health care provider. Document Released: 02/10/2018 Document Revised: 04/14/2018 Document Reviewed: 02/10/2018 Decalog Patient Education 2020 [employer] Follow Up Care 03/24/2021 11:36:08 With:Juan JONES, Thelma Cazares, URL, URO Address: [address] [place] [place] [phone] When:Within 6 Month(s) Comments:w/ PSA F&T [facility] Evaluation + Plan note Future Appointments Appointment Date:11/17/2022 10:15:00 AM Scheduled Provider:Thelma Martinez MD Location:[facility] Appointment Type:URO Office Visit Diagnostic Tests PendingPSA Free & Total 05/19/22 [facility] Evaluation + Plan note Future Appointments Appointment Date:11/23/2023 09:45:00 AM Scheduled Provider:Thelma Martinez MD Location:[facility] Appointment Type:URO Office Visit Diagnostic Tests PendingPSA Free & Total 11/17/22 [facility] Evaluation + Plan note Future Appointments Appointment Date:11/23/2023 09:45:00 AM Scheduled Provider:Thelma Martinez MD Location:[facility] Appointment Type:URO Office Visit [facility] Evaluation + Plan note Future Appointments Appointment Date:11/28/2024 09:45:00 AM Scheduled Provider:Thelma Martinez MD Location:[facility] Appointment Type:URO Office Visit Future Scheduled TestsPSA Free & Total 11/23/23 [facility] Narrative No data available for this section [facility] Hospital Discharge instructions No data available for this section [facility] [place] note No data available for this section [facility] Summary Purpose Family History No Family History Records FoundNo Family History Records FoundNo Family History Records Found No data available for this section No data available for this section No data available for this section No Family History Records FoundNo Family History Records Found No data available for this section No Family History Records Found Advance Directives No Advanced Directives Records FoundNo Advanced Directives Records FoundNo Advanced Directives Records FoundNo Advanced Directives Records FoundNo Advanced Directives Records FoundNo Advanced Directives Records Found Additional Source Comments (unrecognized sect ion and content) No Status Records FoundNo Status Records FoundNo Status Records FoundNo Status Records FoundNo Status Records FoundNo Status Records Found INFORMATION SOURCE (unrecogn ized section and content) DATE CREATED AUTHOR 06/08/2021 [facility] DATE CREATED AUTHOR AUTHOR'S ORGANIZ ATION 05/14/2022 [facility] DATE CREATED AUTHOR AUTHOR'S ORGANIZ ATION 08/18/2022 [facility] DATE CREATED AUTHOR AUTHOR'S ORGANIZ ATION [facility]/17/20[facility] DATE CREATED AUTHOR AUTHOR'S ORGANIZ ATION 11/21/2023 [facility] DATE CREATED AUTHOR AUTHOR'S ORGANIZ ATION 02/07/2024 [facility] EPIC Patient Care team informatio n (unrecognized section and content) Personnel Name: ANYA PETTY MD Address: Address: [address] [place] [address] Personnel Name: ANYA PETTY MD Address: Address: [address] [place] [address] Personnel Name: ANYA PETTY MD Address: Address: [address] Personnel Name: ANYA PETTY MD Address: Address: [facility] [address] Personnel Name: ANYA PETTY MD Address: Address: [facility] [address] Personnel Name: ANYA PETTY MD Address: Address: [facility] [address] FOR RECORDS PERTAINING TO PATIENTS WHO ARE OR HAVE BEEN ENROLLED IN A CHEMICAL DEPENDENCY/SUBSTANCEABUSE PROGRAM, SOME INFORMATION MAY BE OMITTED. This clinical summary was aggregated from multiple sources. Caution should be exercised in using it in the provision of clinical care. This summary normalizes information from multiple sources, and as a consequence, information in this document may materially change the coding, format and clinical context of patient data. In addition, data may be omitted in some cases. CLINICAL DECISIONS SHOULD BE BASED ON THE PRIMARY CLINICAL RECORDS. [facility] [employer] provides no warranty or guarantee of the accuracy or completeness of information in this document.
[2024-02-21 09:14] VITALS: BP 157/91; PULSE 70; TEMP 36.3; O2SAT 96; BMI 29.8
[2024-02-21] MEDS: 0.9 % SODIUM CHLORIDE 500 ML 50 ML IV (09:19)
[2024-02-21 10:47] VITALS: BP 177/85; PULSE 61; TEMP 36.4; O2SAT 92
[2024-02-21 11:02] VITALS: BP 184/82; PULSE 58; O2SAT 94
[2024-02-21 11:20] VITALS: BP 178/90; PULSE 55; O2SAT 95
--- NOTE | 2024-02-21 14:27 | W.PM.PROCNOT ---
Date of procedure: 02/21/24 Pre-op diagnosis: screening c-scope Post-op diagnosis: other (transverse and descending colon polyps) Procedure: Previous colonoscopy: 2013 procedure: colonoscopy with biopsy cold forcep and hot snare polypectomy x3, 1x transverse and x2 descending colon The patient was given IV conscious sedation.? The patient's SPO2 remained above 90% throughout the procedure. The colonoscope was inserted per rectum and advanced under direct vision to the cecum without difficulty.? The prep was good.? Findings: Terminal ileum os: normal Cecum/Ascending colon: normal Transverse colon: .8cm polyp biopsied cold forcep then removed via hot snare technique approx at 100cm Descending/Sigmoid colon: .5cm polyp biopsied cold forcep then removed via hot snare technique approx at 60cm and 1cm polyp biopsied cold forcep then removed via hot snare technique approx at 40cm Rectum/Anus: examined in normal and retroflexed positions and was normal Withdrawal Time was (minutes): 20 The colon was decompressed and the scope was removed.? The patient tolerated the procedure well. Recommendations/Plan: 1.? Lifestyle and dietary modifications as discussed 2.? F/U Biopsies 3.? F/U in 3 years or sooner depending on pathology results 4.? Discussed with the family Anesthesia: MAC Surgeon: Jacobo Real Estimated blood loss (mL): 5 Pathology: other (transverse x1 and descending polyps x2 ) Condition: stable Disposition: PACU
== END 2024-02-21 11:40 | disposition home or self-care (01) ==
PROVIDERS: PCP Family Medicine; Visit Provider Surgery
PROC: (CPT 45385; principal; 2024-02-21 10:00)
DX: Z12.11 Encounter for screening for malignant neoplasm of colon (principal); D12.3 Benign neoplasm of transverse colon; D12.5 Benign neoplasm of sigmoid colon; G47.33 Obstructive sleep apnea (adult) (pediatric); Z87.891 Personal history of nicotine dependence; E78.5 Hyperlipidemia, unspecified; I10 Essential (primary) hypertension
CPT/HCPCS: 45385; J2704

== ENCOUNTER 2025-01-29 11:23 | Outpatient (OUT) | payer MEDICARE, SELFPAY ==
--- OUTSIDE RECORDS SUMMARY | 2025-01-29 11:27 | XMS_ITS | Clinical Summary ---
Author Organization Access Point tem Address [id number] [address] [place] [address] Care Team Providers Care Manufacturing Electrician Name Role Phone Justino Sheriff MD Primary Care Provider [phone] Social History Tobacco Use Types Packs/Day Years Used Date Smoking Tobacco: Never Assessed Childcare Answer Date Recorded Childcare Unknown 04/19/2019 Employment Answer Date Recorded Employment Unknown 04/19/2019 Purpose - Life Answer Date Recorded Purpose and direction in life Unknown Sex and Gender Information Value Date Recorded Sex Assigned at Male 03/08/2023 12:26 PM EDT Legal Sex Male 9:09 AM EST Gender Identity Male 03/08/2023 12:26 PM EDT Sexual Orientation Bisexual 03/08/2023 12 :26 PM EDT Plan of Treatment Health Maintenance Due Date Last Done Comments Depression Screening 1969 Tobacco Screening 1969 Adult BMI Screening 1975 DTaP,Tdap and Td Vaccines (1 - Tdap) 1976 Zoster (Shingles) Vaccine (1 of 2) 2007 Fall Risk Screening 2022 Influenza Vaccine 01/14/2025 Medical Devices Not on file Insurance [employer] Care Teams Manufacturing Electrician Relationship Specialty Start Date End Date Justino Sheriff MD PCP - General Family Medicine 04/19/19
--- OUTSIDE RECORDS SUMMARY | 2025-01-29 11:27 | XMS_ITS | Clinical Summary ---
Author Organization [facility] Address [address] [place] [address] Care Team Providers Care Metal Cut Off Saw Tender Name Role Phone Justino Sheriff MD Primary Care Provider Allergies Active Allergy Reactions Criticality Noted Date Comments Pitavastatin Calcium 05/18/2022 Pravastatin 05/18/2022 Rosuvastatin 05/18/2022 Sildenafil 05/18/2022 Medications ezetimibe (Zetia) 10 mg tablet every other day. Patient cut in half Active losartan (Cozaar) 100 mg tablet in the morning. Active omeprazole (PriLOSEC) [address] capsule 1 capsule every other day. Active Active Problems Problem Noted Date Diagnosed Date Essential hypertension 05/20/2020 Gastroesophageal reflux disease 05/20/2020 Intermittent palpitations 05/20/2020 Assessment & Plan (05/24/2022 8:43 AM EST): -they have beccome infrequent, states he cannot even recall last time he felt that -never took BB medications -will order echo to assess for any CM or LA enlargement per previous plan for follow up Mixed hyperlipidemia 05/20/2020 Family History Medical History Relation Name Comments Coronary artery disease Brother Coronary artery disease Father Relation Name Status Comments Brother Father Social History Tobacco Use Types Packs/Day Years Used Date Smoking Tobacco: Former Cigarettes Smokeless Tobacco: Never Tobacco Cessation:Counseling Given: No Alcohol Use Standard Drinks/Week Comments Never 0 (1 standard drink = 0.6 oz pur e alcohol) [place] Safety & Environment Answer Date Rec orded Fear of Current or Ex-Partner Not on file Emotionally Abused Not on file 07/07/2023 Physically Abused Not on file 07/07/2023 Sexually Abused Not on file 07/07/2023 Physically or Sexually Abused Not on file Sex and Gender Information Value Date Recorded Sex Assigned at Not on file Legal Sex Male 12:32 AM EDT Gender Identity Not on file Sexual Orientation Not on file Last Filed Vital Signs Vital Sign Reading Time Taken Comments Blood Pressure 140/106 08/13/2022 10:24 AM EDT Pulse 68 08/13/2022 10:24 AM EDT Temperature - - Respiratory Rate - - Oxygen Saturation 95% 08/13/2022 10:24 AM EDT Inhaled Oxygen Concentration - - Weight 91.6 kg (202 lb) 08/13/2022 10:24 AM EDT Height 175.3 cm (5' 9.02 ) 08/13/2022 10:24 AM E DT Body Mass Index 29.82 08/13/2022 10:24 AM EDT Plan of Treatment Health Maintenance Due Date Last Done Comments CT Colonography 1957 Colonoscopy 1957 Colorectal Cancer Screening 1957 FIT-DNA 1957 FIT 1957 FOBT 1957 Medicare Annual Wellness (AWV) 1957 Sigmoidoscopy 1957 Depression Screening 1969 Adult Tetanus 1979 Pneumococcal Vaccine: 50+ Ye ars (1 of 1 - PCV) 2007 Zoster Vaccines (1 of 2) 2007 Fall Risk Screening 2022 COVID-19 Vaccine (2 - 2024-2 6 season) 2025 07/23/2020 Influenza Vaccine (#1) 2025 HIB Vaccines Aged Out No longer eligi ble based on patient's age to complete this topic HPV Vaccines Aged Out No longer eligi ble based on patient's age to complete this topic IPV Vaccines Aged Out No longer eligi ble based on patient's age to complete this topic Meningococcal B Vaccine Aged Out No l onger eligible based on patient's age to complete this topic Meningococcal Vaccine Aged Out No irene anton eligible based on patient's age to complete this topic Rotavirus Vaccines Aged Out No longer eligible based on patient's age to complete this topic Insurance [facility] MEDICARE [facility] Care Teams Metal Cut Off Saw Tender Relationship Specialty Start Date End Date Justino Sheriff MD [address] [place] [address] PCP - General 05/18/22
--- OUTSIDE RECORDS SUMMARY | 2025-01-29 11:27 | XMS_ITS | Encounter Summary ---
Author Organization [facility] Address [address] [place] [address] Care Team Providers Care Labor Operator Name Role Phone Justino Sheriff MD Primary Care Provider [phone] Justino Sheriff MD Unavailable Encounter Details Date Type Department Care Team (Late st Contact Info) Description 11/30/2024 Orders Only [facility] [address] [place] [id number] Thelma Martinez MD [address] [place] [address] Social History Tobacco Use Types Packs/Day Years Used Date Smoking Tobacco: Former Cigarettes 0.5 10 Smokeless Tobacco: Never Alcohol Use Standard Drinks/Week Comments Yes 7 (1 standard drink = 0.6 oz pur e alcohol) B1300 Health Literacy Answer Date Recor ded How often do you need to hav e someone help you when you read instructions, pamphlets, or other written material from your doctor or pharmacy? Never 01/27/2024 Social Connection and Isolat ion Panel [NHANES] Answer Date Recorded In a typical week, how many times do you talk on the phone with family, friends, or neighbors? More than three times a week 01/27/2024 How often do you get togethe r with friends or relatives? Three times a week 01/27/2024 How often do you attend chur or caodaism services? Never 01/27/2024 Do you belong to any clubs o r organizations such as anglican groups, unions, fraternal or athletic groups, or school groups? No 01/27/2024 How often do you attend meet ings of the clubs or organizations you belong to? More than 4 times per year 01/27/2024 Are you , , di vorced, , never , or living with a partner? 01/27/2024 AUDIT-C Answer Date Recorded Q1: How often do you have a drink containing alcohol? 4 or more times a week 01/27/2024 Q2: How many drinks containi ng alcohol do you have on a typical day when you are drinking? 1 or 2 Q3: How often do you have si x or more drinks on one occasion? Never 01/27/2024 Overall Financial Resource Strain (CARDIA) Answe r Date Recorded How hard is it for you to pa y for the very basics like food, housing, medical care, and heating? Somewhat hard 01/27/2024 PHQ-2 Answer Date Recorded Patient Health Questionnaire-2 Score 0 01/27/2024 [facility] - Occupational Stress Questionnaire Answer Date Recorded Do you feel stress - tense, restless, nervous, or anxious, or unable to sleep at night because your mind is troubled all the time - these days? Not at all 01/27/2024 Exercise Vital Sign Answer Date Recorde d On average, how many days pe r week do you engage in moderate to strenuous exercise (like a brisk walk)? 3 days 01/27/2024 On average, how many minutes do you engage in exercise at this level? 40 min 01/27/2024 Hunger Vital Sign Answer Date Recorded Within the past 12 months, y ou worried that your food would run out before you got the money to buy more. Never true 01/27/20 24 Within the past 12 months, t he food you bought just didn't last and you didn't have money to get more. Never true 01/27/2024 PRAPARE - Transportation Answer Date Re corded In the past 12 months, has l ack of transportation kept you from medical appointments or from getting medications? No 01/14 In the past 12 months, has l ack of transportation kept you from meetings, work, or from getting things needed for daily living? No 01/27/2024 Housing Stability Vital Sign Answer Barrett e Recorded In the last 12 months, was t here a time when you were not able to pay the mortgage or rent on time? No 01/27/2024 In the past 12 months, how m any times have you moved where you were living? 0 01/27/2024 At any time in the past 12 m [facility], were you homeless or living in a snf (including now)? No 01/27/2024 Sex and Gender Information Value Date Recorded Sex Assigned at Not on file Legal Sex Male 7:08 AM EDT Gender Identity Not on file Sexual Orientation Not on file documented as of this encounter Plan of Treatment Not on file documented as of this encounter Procedures Procedure Name Priority Date/Time Associated Diagnosis Comments SCANNED LABS Routine 11/30/2024 9:18 AM EDT documented in this encounter Results * SCANNED LABS (11/30/2024 9:18 AM EDT) us Thelma Martinez MD LAB CHG PERFORMABLES Final Resul t documented in this encounter Visit Diagnoses Not on filedocumented in this encounter Additional Health Concerns Assessment Noted Time PHQ-9 Depression Total Score: 0 01/27/20 24 10:00 AM EDT documented as of this encounter Care Teams Labor Operator Relationship Specialty Start Date End Date Justino Sheriff MD PCP - General Family Medicine 01/27/24 Justino Sheriff MD [address] [place] [address] PCP - ACO Reach 06/22/24 documented as of this encounter
--- OUTSIDE RECORDS SUMMARY | 2025-01-29 11:27 | XMS_ITS | Clinical Summary ---
Author Organization [facility] Address [address] [place] [address] Care Team Providers Care Photovoltaic Technician Name Role Phone Justino Sheriff MD Primary Care Provider [phone] Justino Sheriff MD Unavailable Allergies No known active allergies Medications losartan (Cozaar) 100 MG tabletIndicatio ns:Essential hypertension, benign TAKE 1 TABLET BY MOUTH EVERY DAY 90 tablet 3 11/19/2024 Active ezetimibe (Zetia) 10 MG tabletIndicatio ns:Essential hypertension, benign TAKE 1 TABLET BY MOUTH AT BEDTIME 90 tablet 3 11/19/2024 Active Active Problems Problem Noted Date Diagnosed Date Essential hypertension, benign 01/27/2024 Dyslipidemia 01/27/2024 Gastroesophageal reflux disease without esophagi tis 01/27/2024 Palpitations 01/27/2024 Statin intolerance 01/27/2024 Vitamin D deficiency 01/27/2024 Encounter for long-term current use of medicatio n 01/27/2024 Medicare annual wellness visit, subsequent 01/26 Assessment & Plan (01/27/2024 11:11 AM EDT): Due for labs. Over 10 years since last colonoscopy and refer. Discussed proper diet and regular aerobic exercise. Need aerobic exercise 5-6 days a week for 30 minutes at a time. Smaller portions and limit total calories. Tetanus every 10 years. Advised not to smoke. Discussed daily Aspirin therapy. Screening PSA (prostate specific antigen) 2023 Obesity (BMI 30-39.9) 01/27/2024 Encounters Date Type Department Care Team Description 11/30/2024 Orders Only [facility] [address] [place] [phone] Thelma Martinez MD 11/19/2024 Refill [facility] [address] [place] [phone] Justino Sheriff MD Essential hypertension, benign (Primary Dx) from Last 3 Months Family History Medical History Relation Name Comments Cancer Sister Lavinia Nickerson Relation Name Status Comments Sister Lavinia Nickerson Social History Tobacco Use Types Packs/Day Years Used Date Smoking Tobacco: Former Cigarettes 0.5 10 Smokeless Tobacco: Never Tobacco Cessation:Counseling Given: Not Answered Alcohol Use Standard Drinks/Week Comments Yes 7 [...] 01/27/2024 How often do you attend chur ch or yarsani services? Never 01/27/2024 Do you belong to any clubs o r organizations such as shinto groups, unions, fraternal or athletic groups, or [...] Recorded Patient Health Questionnaire-2 Score 0 01/27/2024 [facility] - Occupational Stress Questionnaire Answer Date Recorded [...] any time in the past 12 m [facility], were you homeless or living in a custodial (including now)? No 01/27/2024 Sex and Gender Information Value Date Recorded Sex Assigned at Not on file Legal Sex Male 7:08 AM EDT Gender Identity Not on file Sexual Orientation Not on file Last Filed Vital Signs Vital Sign Reading Time Taken Comments Blood Pressure 138/76 02/06/2024 9:03 AM EDT Pulse 67 02/06/2024 9:03 AM EDT Temperature 36.4 C (97.5 F) 01/27/2024 10:32 AM EDT Respiratory Rate 16 02/06/2024 9:03 AM EDT Oxygen Saturation 98% 02/06/2024 9:03 AM EDT Inhaled Oxygen Concentration - - Weight 93.8 kg (206 lb 12.8 oz) 02/06/2024 9:03 AM EDT Height 175.3 cm (5' 9 ) 02/06/2024 9:0 3 AM EDT Body Mass Index 30.54 02/06/2024 9:03 AM EDT Plan of Treatment Health Maintenance Due Date Last Done Comments CT Colonography 1957 FIT-DNA 1957 FIT 1957 FOBT 1957 Medicare Annual Wellness (AWV) 1957 Sigmoidoscopy 1957 Pneumococcal Vaccine: 65+ Years (1 of 1 - PCV) 008 Influenza Vaccine (#1) 2025 03/06/2021 Colonoscopy 02/20/2034 02/21/2024 Colorectal Cancer Screening 02/20/2034 Procedures Procedure Name Priority Date/Time Associated Diagnosis Comments SCANNED LABS Routine 11/30/2024 9:18 AM EDT from Last 3 Months Results * SCANNED LABS (11/30/2024 9:18 AM EDT) Thelma Martinez MD LAB CHG PERFORMABLES Final Resul t from Last 3 Months Insurance MEDICARE [employer] Care Teams Photovoltaic Technician Relationship Specialty Start Date End Date Justino Shreiff MD PCP - General Family Medicine 01/27/24 Justino Sheriff MD [address] [place] [address] PCP - ACO Reach 06/22/24
--- OUTSIDE RECORDS SUMMARY | 2025-01-29 11:27 | XMS_ITS | Encounter Summary ---
Author Organization [facility] Address [address] [place] [address] Care Team Providers Care Night Nurse Name Role Phone Justino Sheriff MD Primary Care Provider [phone] Justino Sheriff MD Primary Care Provider [phone] Justino Sheriff MD Unavailable Encounter Details Date Type Department Care Team (Late st Contact Info) Description 11/16/2023 Orders Only [facility] [address] [place] [phone] Thelma Martinez MD [address] [place] [address] Social History Tobacco Use Types Packs/Day Years Used Date Smoking Tobacco: Never Assessed Sex and Gender Information Value Date Recorded Sex Assigned at Not on file Legal Sex Male 7:08 AM EDT Gender Identity Not on file Sexual Orientation Not on file documented as of this encounter Plan of Treatment Not on file documented as of this encounter Procedures Procedure Name Priority Date/Time Associated Diagnosis Comments MISCELLANEOUS LAB TEST Routine 11/16/2023 2:33 PM EDT documented in this encounter Results * - Miscellaneous Test (11/16/2023 2:33 PM EDT) us Thelma Martinez MD LAB BLOOD ORDERABLES Final Resul t documented in this encounter Visit Diagnoses Not on filedocumented in this encounter Care Teams Night Nurse Relationship Specialty Start Date End Date Justino Sheriff MD PCP - General Family Medicine 05/16/22 01/26/24 Justino Sheriff MD PCP - General Family Medicine 01/27/24 Justino Sheriff MD [address] [place] [address] PCP - ACO Reach 06/22/24 documented as of this encounter
[2025-01-29 11:53] LABS: Hematocrit 54.7 % (42.0-54.0); Hemoglobin 18.8 g/dL (14.0-18.0); Immature Granulocytes Abs Auto 0.04 10^3/uL (0.00-0.03); Immature Granulocytes Pct Auto 0.5 % (0.0-0.5); Lymphocytes Absolute Auto 2.6 10^3/uL (1.2-3.8); Mean Corpuscular HGB Conc 34.4 g/dL (29.9-35.2); Mean Corpuscular Hemoglobin 30.1 pg (25.9-34.0); Mean Corpuscular Volume 87.5 fL (80.0-94.0); Platelet Count 277 10^3/uL (150-450); Red Blood Count 6.25 10^6/uL (4.70-6.10); White Blood Count 8.4 10^3/uL (4.0-11.0)
[2025-01-29 12:21] LABS: Alanine Aminotransferase 29 U/L (16-63); Albumin Globulin Ratio 1.0; Albumin Level 3.7 g/dL (3.4-5.0); Alkaline Phosphatase 66 U/L (46-116); Anion Gap 11.3; Aspartate Amino Transferase 18 U/L (15-37); Blood Urea Nitrogen 24.0 mg/dL (7.0-18.0); Calcium 8.7 mg/dL (8.5-10.1); Carbon Dioxide 26.9 mmol/L (21.0-32.0); Chloride 110 mmol/L (98-107); Cholesterol 203 mg/dL (<=200); Estimated GFR (African America >60 (>=60 mL/min/1.73m^2); Estimated GFR (Non-African Ame >60 (>=60 mL/min/1.73m^2); Globulin 3.6 g/dL; Glucose 96 mg/dL (74-106); HDL Cholesterol 29 mg/dL (40-60); Potassium 4.2 mmol/L (3.5-5.1); Sodium 144 mmol/L (136-145); Thyroid Stimulating Hormone 2.650 uIU/mL (0.358-3.740); Total Protein 7.3 g/dL (6.4-8.2); Triglycerides 421 mg/dL (<=150); VLDL CHOLESTEROL 84.2 mg/dL
--- OUTSIDE RECORDS SUMMARY | 2025-01-29 12:23 | XMS_ITS | CCD ---
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 THELMA M Consulting Unavailable JUSTINO PETTY Primary Care Physician [phone] JOHN MULLER Attending Unavailable PATRICIA TSAI Referring Unavailable PATRICIA TSAI Attending Unavailable Lue, Thelma MPhilippe Attending Unavailable Lue, Thelma MPhilippe Attending Unavailable Lue, Thelma MPhilippe Attending Unavailable Lue, Thelma M. Admitting Unavailable Lue, Thelma M. Attending Unavailable JUSTINO PETTY Attending Unavailable COURT REAL Attending Unavailable DO Court Real Attending Provider Justino Petty MD Primary Care Provider [phone] Lue, Thelma MPhilippe Attending Unavailable SOLANGE BYNUM Attending Unavailable Lue, Thelma M. Admitting Unavailable Lue, Thelma M. Attending Unavailable Lue, Thelma M. Attending Unavailable Lue, Thelma M. Admitting Unavailable Lue, Thelma M. Attending Unavailable Lue, Thelma M. Admitting Unavailable Lue, Thelma M. Admitting Unavailable Lue, Thelma M. Attending Unavailable Lue Thelma JONES Attending Provider [phone] Justino Petty MD Primary Care Provider Lue, Thelma MPhilippe Attending Unavailable Lue, Thelma MPhilippe Attending Unavailable Court Real Admitting Unavailable Court Real Attending Unavailable Lue, Thelma M Admitting Unavailable Thelma Martinez Attending Unavailable Justino Petty Primary Care Unavailable Justino Petty MD Attending Provider Allergies Allergy Classification Reported Allergen(s) Allergy Type Date of Onset Reaction(s) Facility HMG-CoA Reductase Inhibitors (statins) (1 source) rosuvastatin; Translations: [rosuvastatin] Drug Allergy Joint pain (finding) [facility] (12 sources) rosuvastatin; Translations: [rosuvastatin] Drug Allergy 3 Joint pain (finding) [facility] (1 source) pitavastatin; Translations: [PITAVASTATIN CALCIUM] Drug Allergy 3 [facility] (1 source) Pravastatin; Translations: [PRAVASTATIN] Drug Allergy 3 [facility] (1 source) sildenafil; Translations: [SILDENAFIL] Drug Allergy 3 [facility] (4 sources) pitavastatin; Translations: [Livalo] Drug Allergy [facility] (4 sources) Pravastatin; Translations: [Pravachol] Drug Allergy [facility] (4 sources) sildenafil; Translations: [Viagra] Drug Allergy [facility] (1 source) Unable to Assess Drug allergy (disorder) 5 [facility] Repository Medications Current Medications Medication Drug Class(es) Dates Sig (Normalized) Sig (Original) aspirin 81 mg oral tablet (1 source) Platelet Aggregation Inhibitor, Nonsteroidal Anti-inflammatory Drug Start: 04-30-2020 aspirin 81 mg oral tablet Start Date: 04/30/20 Status: Ordered bisacodyl 5 mg delayed release oral tablet (2 sources) Stimulant Laxative Start: 02-06-2024 End: 02-06-2024 take 1 tablet by mouth once bisacodyl (Dulcolax) 5 MG EC tablet Indications: Encounter for screening colonoscopy Take 1 tablet (5 mg) by mouth 1 time for 1 dose Do not crush, chew, or split. Take as detailed on clinic hand out for colonoscopy prep 1 tablet 02/06/2024 02/06/2024 Active Osteo Bi-Flex (8 sources) Start: 06-10-2020 Osteo Bi-Flex Start Date: 06/10/20 Status: Ordered Repeat number: 1 Start: 06-10-2020 Osteo Bi-Flex Start Date: 06/10/20 Status: Ordered ezetimibe 10 mg oral tablet (14 sources) Dietary Cholesterol Absorption Inhibitor Start: 01-25-2025 take 1 tablet by mouth once daily at bedtime Ezetimibe 10 mg tablet Active 10 MG PO Daily at bedtime January 25, 2025 12:00am Complies with drug therapy Start: 04-30-2020 take 1 tablet by mouth at bedt jere ezetimibe 10 mg Tab 10 mg = 1 tab(s), Oral, Bedtime Start Date: 04/30/20 Status: Ordered Repeat number: 1 losartan potassium 100 mg oral tablet (15 sources) Angiotensin 2 Receptor Gabriela Start: 01-25-2025 take 1 tablet by mouth once daily Losartan 100 mg tablet Active 100 MG PO Daily January 25, 2025 12:00am Complies with drug therapy Start: 04-30-2020 take 1 tablet by mouth once da miguel losartan 100 mg Tab 100 mg = 1 tab(s), Oral, Daily Start Date: 04/30/20 Status: Ordered Repeat number: 1 24 hr metoprolol succinate 25 mg extended release oral tablet (1 source) beta-Adrenergic Gabriela Start: 06-10-2020 take 1 tablet by mouth once daily metoprolol 25 mg ER Tab 25 mg = 1 tab(s), Oral, Daily Start Date: 06/10/20 Status: Ordered Holtwood-3 (8 sources) Start: 06-10-2020 Holtwood-3 Start Date: 06/10/20 Status: Ordered Repeat number: 1 Start: 06-10-2020 Holtwood-3 Start Date: 06/10/20 Status: Ordered omeprazole 40 mg oral tablet (1 source) Proton Pump Inhibitor Start: 04-30-2020 take 40 mg by mouth once daily omeprazole 40 mg, Oral, Daily Start Date: 04/30/20 Status: Ordered polyethylene glycol 3350 04290 mg powder for oral solution (2 sources) Osmotic Laxative Start: 02-06-2024 End: 02-06-2024 take 17 g by mouth once polyethylene glycol, PEG, 3350 (Glycolax) 17 GM/SCOOP powder Indications: Colonoscopy Take 238 g by mouth 1 (one) time for 1 dose Take as detailed from clinic hand out for colonoscopy prep 238 g 02/06/2024 02/06/2024 Active Problems Active Problems Problem Classification Problem Date Documented Date Episodic/Chronic Calculus of urinary tract (9 sources) Kidney stone; Translations: [Calculus of kidney] Onset: 03-16-2023 Episodic Cardiac dysrhythmias (2 sources) Ventricular premature depolarization; Translations: [Ventricular premature depolarization] Onset: 08-13-2022 Chronic Cardiac dysrhythmias (17 sources) Palpitations; Translations: [Palpitations] Onset: 05-18-2022 04-30-2020 Episodic Disorders of lipid metabolism (20 sources) Dyslipidemia; Translations: [Mixed hyperlipidemia] Onset: 05-20-2020 04-30-2020 Chronic Esophageal disorders (15 sources) Gastroesophageal reflux disease; Translations: [Gastroesophageal reflux disease without esophagitis] Onset: 01-27-2024 04-30-2020 Chronic Essential hypertension (20 sources) Benign essential hypertension; Translations: [Essential (primary) hypertension] Onset: 08-13-2022 04-30-2020 Chronic Genitourinary symptoms and ill-defined conditions (20 sources) Poor stream of urine; Translations: [Urgent desire to urinate] Onset: 03-16-2023 06-10-2020 Episodic Hyperplasia of prostate (20 sources) Benign prostatic hyperplasia with lower urinary tract symptoms; Translations: [Benign prostatic hypertrophy without outflow obstruction] Onset: 05-11-2022 Chronic Nutritional deficiencies (16 sources) Vitamin D deficiency, unspecified; Translations: [Vitamin D deficiency] Onset: 10-22-2021 04-30-2020 Chronic Other aftercare (4 sources) Patient encounter status; Translations: [Other longshore equipment operator (current) drug therapy] Onset: 01-27-2024 01-27-2024 Episodic Other aftercare (5 sources) Long-term current use of drug therapy; Translations: [Other penitentiary (current) drug therapy] Onset: 01-27-2024 01-27-2024 Episodic Other diseases of kidney and ureters (1 source) Urinary tract obstruction; Translations: [Other obstructive and reflux uropathy] Onset: 11-16-2023 Episodic Other male genital disorders (8 sources) Phimosis 05-07-2020 Episodic Other nutritional; endocrine; and metabolic disorders (7 sources) Body mass index 30+ - obesity; Translations: [Obesity, unspecified] Onset: 01-27-2024 01-27-2024 Chronic Other nutritional; endocrine; and metabolic disorders (1 source) Obesity; Translations: [Obesity, unspecified] 01-25-2025 Chronic Other screening for suspected conditions (not mental disorders or infectious disease) (20 sources) Encounter for screening for malignant neoplasm of prostate; Translations: [Raised prostate specific antigen] Onset: 10-22-2021 Episodic Residual codes; unclassified (7 sources) Other specified health status; Translations: [Other drug allergy] Onset: 01-27-2024 01-27-2024 Episodic Unclassified (8 sources) Asymptomatic microscopic hematuria 05-07-2020 Unclassified (8 sources) Long-term current use of aspirin 05-07-2020 Unclassified (11 sources) Obstructive hydronephrosis 03-16-2023 Past or Other Problems Problem Classification Problem Date Documented Da te Episodic/Chronic Mood disorders (5 sources) Mood disorders Onset: 01-27-2024 01-27-2024 Results Test Name Value Interpretation Reference Range Facility ISTAT XRay CREon 12-24-2024 ISTAT GFR >60.0 Normal [facility] Comment on above: Result Comment: PERF ORMED BY: [place] [address] PATHOLOGIST AUTOMATIC GLUING MACHINE OPERATOR CASSIE MAURER M.D. Performed By: #### I SCRE #### [address] MR prostate wo/w conon 12-24 MR prostate wo/w con [facility] [place] [address] MRI Report Signed Patient: Geri Nickerson MR#: [id number] : 1955 Acct:[id number] Age/Sex: 69 / M ADM Date: 12/24/24 Loc: Room: Type: [facility] Attending Dr: Thelma Martinez MD Copies to: Thelma Martinez MD Ordering Provider: Thelma Martinez MD Date of Service: 12/24/24 MR/MR prostate wo/w con: R97.20 EXAMINATION: MR prostate wo/w con HISTORY: Elevated PSA. COMPARISON: NONE TECHNIQUE: Multiparametric imaging of the prostate gland was performed with IV contrast. FINDINGS: Prostate Dimensions: 5.2 x 4.2 x 5.2 cm. Prostate Volume: 59 mL. Peripheral Zone: Heterogenous inT2 signal suggestive of prior prostatitis. No suspicious T2 or ADC map abnormality is identified to suggest prostate malignancy. Central/Transitional Zone: BPH changes. Seminal Vesicles: Unremarkable Neurovascular bundles: Unremarkable. Lymphadenopathy: No evidence of lymphadenopathy. Bladder: No focal lesion. Bowel: Diverticulosis. Peritoneal Cavity: No free fluid. Bones: No suspicious bony lesion. MR/MR prostate wo/w con IMPRESSION: No MRI evidence of clinically significant prostate cancer. BPH changes. Impression dictated by: Nathan Jaquez Jr., D.OPhilippe 12/24/2024 3:36 PM Dictation Location: [place] [address] Transcribed By: [facility] 12/24/24 1536 Dictated By: Nathan Jaquez Jr, DO 12/24/24 1534 Signed By: 12/24/24 1536 Normal [facility] Magnetic resonance imaging r eportOrdered By: Nathan Jaquez on 12-24-2024 Study report [facility] [place] [address] [place] [address] MRI Report Signed Patient: Geri Nickerson MR#: [id number] : 1955 Acct:[id number] Age/Sex: 69 / M ADM Date: 5 Loc: MR Room: Type: [facility] Attending Dr: Thelma Martinez MD Copies to: Thelma Martinez MD~ Ordering Provider: Thelma Martinez MD Date of Service: 12/24/24 MR/MR prostate wo/w con: R97.20 EXAMINATION: MR prostate wo/w con HISTORY: Elevated PSA. COMPARISON: NONE TECHNIQUE: Multiparametric imaging of the prostate gland was performed with IV contrast. FINDINGS: Prostate Dimensions: 5.2 x 4.2 x 5.2 cm. Prostate Volume: 59 mL. Peripheral Zone: Heterogenous inT2 signal suggestive of prior prostatitis. Nosuspicious T2 or ADC map abnormality is identified to suggest prostate malignancy. Central/Transitional Zone: BPH changes. Seminal Vesicles: Unremarkable Neurovascular bundles: Unremarkable. Lymphadenopathy: No evidence of lymphadenopathy. Bladder: No focal lesion. Bowel: Diverticulosis. Peritoneal Cavity: No free fluid. Bones: No suspicious bony lesion. MR/MR prostate wo/w con IMPRESSION: No MRI evidence of clinically significant prostate cancer. BPH changes. Impression dictated by: Nathan Jaquez Jr., D.OPhilippe 12/24/2024 3:36 PM Dictation Location: [facility] Transcribed By: [facility] 12/24/24 1536 Dictated By: Nathan Jaquez Jr DO 12/24/24 1534 Signed By: 12/24/24 153 [facility] No Panel InformationOrdered By: Thelma Martinez on 12-24-2024 Bedside Estimated GFR (eGFR) > 60.0 [facility] Whole blood creatinine measu rementOrdered By: Thelma Martinez on 12-24-2024 Creatinine [Mass/Vol] 1.2 mg/dL 0.6-1.3 [facility] Comment on above: ER/ESD physician is notified/shown all ISTAT results.Critical values may be confirmed by laboratory testing ifdeemed necessary by ER attending doctor. Result Comment: ER/E SD physician is notified/shown all ISTAT results. Critical values may be confirmed by laboratory testing if deemed necessary by ER attending doctor. Performed By: #### I SCRE #### [address] C Urineon 11-30-2024 Bacteria identified Cx Nom (U) Microbiology PROCEDURE: Urine Culture [R1] SOURCE: U CleanCatch BODY SITE: COLLECTED DATE/TIME: 11/28/2024 10:23 EDT RECEIVED DATE/TIME: 11/28/2024 17:19 EDT START DATE/TIME: 11/28/2024 17:19 EDT FREE TEXT SOURCE: Juan JONES, Thelma Martinez MD, Thelma Cazares FINAL REPORTS Final Report [] Verified Date/Time: 11/30/2024 07:02 EDT 100 cfu/ml Mixed skin contaminants Performing Locations R1: This test was performed at: [facility], [address] [place] [address], [id number]- , [place], Normal [facility] Comment on above: Performed By: #### [id number] #### [facility] [address] [place] [address] Ambulatory Visit Summaryon 0 11-28-2024 Ambulatory Visit Summary Ambulatory Visit Summary GERI NICKERSON :1955 Visit Date:11/28/2024 Ambulatory Visit Instructions Your Diagnosis Elevated PSA Asymptomatic microscopic hematuria Kidney stones BPH with urinary obstruction Tests Performed MRI Pelvis (Soft Tissue) w/ + w/o contrast -- Results Pending -- Please visit your patient portal for your results or contact your primary care physician. Your Care Team Attending Physician - Juan JONES, Thelma Cazares Primary Care Physician - MALINDA JONES, JUSTINO This Is Your Medications List Contact prescribing physician if questions or concerns chondroitin-glucosami ne (Osteo Bi-Flex) ezetimibe (ezetimibe 10 mg Tab) losartan (losartan 100 mg Tab) omega-3 polyunsaturated fatty acids (Holtwood-3) Procedures Performed Transrectal biopsy of prostate using ultrasound (US) guidance (05/20/2020), Colonoscopy (2003), Tonsillectomy. What to do next You Need to Schedule the Following Appointments Follow Up with Juan JONES, Thelma Cazares, URL, URO When: Comments: f/u pending prostate MRI results Where: [address] [place] [phone] Medications What How Much When Instructions Unchanged chondroitin-glucosami ne (Osteo Bi-Flex) Contact prescribing physician if questions or concerns Unchanged ezetimibe (ezetimibe 10 mg Tab) 1 Tablets By Mouth At bedtime Contact prescribing physician if questions or concerns Unchanged losartan (losartan 100 mg Tab) 1 Tablets By Mouth Every day Contact prescribing physician if questions or concerns Unchanged omega-3 polyunsaturated fatty acids (Holtwood-3) Contact prescribing physician if questions or concerns Allergies Crestor (Joint pain) Problems Ongoing - Any problem that you are currently receiving treatment for. Aspirin long-term use Asymptomatic microscopic hematuria Benign essential hypertension BPH with urinary obstruction BPH without urinary obstruction Dyslipidemia Elevated PSA GERD (gastroesophageal reflux disease) Kidney stones Mixed hyperlipidemia Obstructive hydronephrosis Palpitation Phimosis Ureteral stone with hydronephrosis Urgency of urination Vitamin D deficiency Weak urine stream Patient Survey You may receive a survey via text or e-mail asking about your office visit. Please share your experience with us by completing your survey. We appreciate your feedback and thank you for choosing us for your care. Education [employer] Magnetic Resonance Imaging Magnetic resonance imaging (MRI) is a painless test that produces detailed images of organs and tissues inside the body without using X-rays. During an MRI, strong magnets and radio waves work together to form images. MRI images may provide more details about a medical condition than X-rays, CT scans, and ultrasounds can provide. For a standard MRI, you will lie on a table that slides into a tunnel. In an open MRI, the tunnel will be open at the sides. In some cases, dye (contrast material) may be injected into your bloodstream to make the MRI images even clearer. Tell a health care provider about: ??? Any allergies you have. ??? All medicines you are taking, including vitamins, herbs, eye drops, creams, and glmw-emb-nnexern medicines. ??? Any surgeries you have had. ??? Any medical conditions you have. ??? Any metal you may have in your body. The magnets used in an MRI can cause metal objects in your body to move. Metal can also make it difficult to get clear images. Objects that may contain metal include: ? Any joint replacement (prosthesis), such as an artificial knee or hip. ? An implanted defibrillator, pacemaker, or neurostimulator. ? A metallic ear implant (cochlear implant). ? An artificial heart valve. ? A metallic object in the eye. ? Metal splinters. ? Bullet fragments. ? A port for delivering insulin or chemotherapy. ??? Any tattoos you have. Some of the darker inks can cause problems with testing. ??? Whether you are using a control implant such as an intrauterine device (IUD). ??? Whether you are , may be , or are . ??? Any fear of cramped spaces (claustrophobia). If this is a problem, it usually can be managed with medicines given prior to the MRI. What are the risks? Generally, this is a safe test. However, problems may occur, such as: ??? If you have metal in your body and it is close to the area being tested, it may be hard to get high-quality images. ??? If you are , you should avoid MRI tests during the first three months of . An MRI may affect an unborn baby. ??? If dye is used: ? You may need to stop until the dye leaves your body naturally, if this applies. ? There is a risk of an allergic reaction to the dye. You can take medicines to prevent this reaction or to treat it if you have allergy symptoms. ? The dye can cause damage to your kidneys. Drinking p (more content not included)... Normal [facility] Urinalysis with Microon 11-13 Color (U) Yellow Normal Yellow [facility] Comment on above: Result Comment: Micr oscopic readings are only performed on those samples that meet specific criteria set forth by [facility]. Performed By: #### 4 [id number] #### [facility] [address] [place] [address] Glucose (U) [Mass/Vol] Negative Normal Negative Fi [facility] Comment on above: Performed By: #### 4 [id number] #### [facility] [address] [place] [address] Ketones Ql (U) Negative Normal Negative [facility] Comment on above: Performed By: #### 4 [id number] #### [facility] [address] [place] [address] UA Blood Trace Abnormal Negative [facility] Comment on above: Performed By: #### 4 [id number] #### [facility] [address] [place] [address] UA Clarity Clear Normal Clear [facility] Comment on above: Performed By: #### 4 [id number] #### [facility] [address] [place] [address] UA Leuk Est Negative Normal Negative [facility] Comment on above: Performed By: #### 4 [id number] #### [facility] [address] [place] [address] UA Nitrite Negative Normal Negative [facility] Comment on above: Performed By: #### 4 [id number] #### [facility] [address] [place] [address] UA pH 5.0 Invalid Interpretation Code 5.0-9.0 [facility] Comment on above: Performed By: #### 4 [id number] #### [facility] [address] [place] [address] UA Protein Trace Abnormal Negative [facility] Comment on above: Performed By: #### 4 [id number] #### [facility] [address] [place] [address] UA Spec Grav 1.025 Invalid Interpretation Code 1.005-1.030 [facility] Comment on above: Performed By: #### 4 [id number] #### [facility] [address] [place] [address] UA Urobilinogen Negative Normal Negative [facility] Comment on above: Performed By: #### 4 [id number] #### [facility] [address] [place] [address] Urobilinogen (U) [Mass/Vol] Negative Normal Negative [facility] Comment on above: Performed By: #### 4 [id number] #### [facility] [address] [place] [address] UA Spec Desc Clean Catch Normal [facility] Comment on above: Performed By: #### 4 [id number] #### [facility] [address] [place] [address] Urology Office/Clinic Noteon 11-28-2024 Urology Office/Clinic Note Urology Office/Clinic Note Chief Complaint 1 year f/u HPI Staff 1 year f/u with PSA. Dx: elevated PSA, kidney stones and BPH with urinary obstruction PSA done 11/27/24 - 4.4 & 18.2% (0.8) pt denies any urinary issues. No visible blood in urine, no abdominal or back pain IPSS- 2 History of Present Illness Tests reviewed: reviewed UA, PSA I have reviewed the previous health record information and history for this patient from Dr. Martinez. I have reviewed and verified the staff HPI to be accurate for this encounter. Review of Systems ROS - Provider Constitutional: denies weight loss, denies hot flashes. Eyes: denies eye problems. Gastrointestinal: denies nausea, denies vomiting. Cardiovascular: denies chest pain or angina. Integumentary: no dryness Musculoskeletal: denies musculoskeletal symptoms. ENMT: denies otolaryngeal symptoms. Respiratory: no shortness of breath. Heme/Lymph: denies easy bleeding tendency, denies easy bruising tendency. Psychiatric: no confusion, no anxiety. Genitourinary: See HPI. Physical Exam General Appearance: alert, no distress, well nourished, well developed male. Assessment/Plan 69 yo M here for follow up to review PSA level. PETERSON 24 (22). 1. Elevated PSA (R97.20: Elevated prostate specific antigen [PSA]) PSA 04/15/20 - 5.04 04/22/20 - 3.60 & 13.1% 03/17/21 - 2.70 05/11/22 - 4.09 11/15/22 - 3.30 & 17.0% 11/16/23 - 4.0 & 15% 11/27/24 - 4.4 & 18.2% S/p TRUS/bx with Dr. Marley 05/20/20 - negative. Thinks brother may have had prostate cancer, passed at 80. Two sisters had breast cancer. PCPT Risk Ca% chance of being dx w/ high grade cancer, 17% chance of low grade. PSA continues to rise slowly. Level has been higher in the past. Discussed options of closer PSA monitoring q6mos (vs annually) vs select MDX vs MRI which could lead to fusion bx if lesion was found. May proceed with prostate bx regardless given prostate MRIs can miss prostate cancer in 12-16% of patients. Risks/benefits of each option discussed. Pt elects to proceed with MRI. We discussed risks of MRI fusion prostate biopsy approaches including transrectal and transperineal. Risks of the procedure were discussed to include but not be limited to bleeding, pain, infection (higher, including sepsis with transrectal approach), difficulties with urination, injury to the urethra, prostate or bladder or surrounding tissues, injury from positioning on the table, swelling and bruising of the skin, and need for further procedures. Pt to think about which approach he prefers. -Schedule prostate MRI. Will call pt w results. If lesion is found, will schedule MRI fusion bx, approach based on pt choice, leaning towards TP under MAC 2. Asymptomatic microscopic hematuria (R31.21: Asymptomatic microscopic hematuria) UA today shows small blood. Denies gross hematuria. Pt states this is chronic (since he was a child). Discussed possible etiologies of hematuria. Smoker x30 yrs. Mentioned workup if microscopic hematuria is confirmed. Discussed hematuria workup includes upper urinary tract imaging, evaluation of the urinary cells with urine cytology, and a cystoscopy to rule out lower urinary tract pathology. Pt elects to have urine evaluated. -Urine sample to be sent for micro and culture. Will call pt w results. If >3 RBCs found, will proceed with hematuria workup - Cysto, CTU. -If necessitated, cysto can be done at time of bx 3. Kidney stones (N20.0: Calculus of kidney) CT AP 01/31/23 [facility] - 4mm L renal pelvis stone with hydro, down to distal ureter on repeat CT 02/06/23 upon ER return [facility] 02/28/23 - 7mm calcification in the upper pole of the Lt kidney (on CT Scan not present, unlikely new kidney stone) -Did pass stone around 02/16-02/17 but unable to catch it. Experienced microscopic hematuria (not gross hematuria as was noted previously). [1] Has increased fluid intake to ~64 oz of fluid daily (was 16 oz before stone episode) -Dietary modifications, increase water intake 4. BPH with urinary obstruction (N40.1: Benign prostatic hyperplasia with lower urinary tract symptoms) IPSS 2 (4). Not currently on any BPH medications. Not voicing any urinary habit complaints. Declines treatment at this time. -Cont monitoring sx -Limit fluids prior to bed. Follow-up With When Contact Information Juan JONES, Thelma Cazares, URL, [facility] [address], [place] [address]- [phone] Additional Instructions: f/u pending prostate MRI results Patient Education Magnetic Resonance Imaging Prostate Cancer Screening I, Daija Amaya, personally scribed for Dr. Martinez on 11/28/2024 10:36:50. . Documentation recorded by the scribDaija rosenthal, accurately reflects the services(s) I performed and decisions made by me. Authenticated by Dr. Martinez on 11/28/2024 12:12:30. Problem List/Past Medical History Ongoing Aspirin long-term use Asymptomatic microscopic hematuria Benign e (more content not included)... Normal [facility] Comment on above: Result Comment: Elec tronically Signed By: Thelma Martinez MD\.br\Date and Time Signed: 11/28/24 12:12 EDT\.br\Electronically Co-Signed By: Daija Amaya\.br\Date and Time Co-Signed: 11/28/24 10:37 EDT Ambulatory Visit Summaryon 0 11-27-2024 Ambulatory Visit Summary Ambulatory Visit Summary GERI NICKERSON :1955 Visit Date:11/27/2024 Ambulatory Visit Instructions Your Diagnosis Elevated PSA Your Care Team Attending Physician - SOLANGE BYNUM PA-C Primary Care Physician - JUSTINO PETTY MD This Is Your Medications List chondroitin-glucosami ne (Osteo Bi-Flex) ezetimibe (ezetimibe 10 mg Tab) losartan (losartan 100 mg Tab) omega-3 polyunsaturated fatty acids (Holtwood-3) Procedures Performed Transrectal biopsy of prostate using ultrasound (US) guidance (05/20/2020), Colonoscopy (2003), Tonsillectomy. What to do next Scheduled Follow-Up Appointments Tuesday 9:45 AM EDT With: Thelma Martinez MD Where: [facility] [address] [address]- Medications What How Much When Instructions Unchanged chondroitin-glucosami ne (Osteo Bi-Flex) Unchanged ezetimibe (ezetimibe 10 mg Tab) 1 Tablets By Mouth At bedtime Unchanged losartan (losartan 100 mg Tab) 1 Tablets By Mouth Every day Unchanged omega-3 polyunsaturated fatty acids (Holtwood-3) Allergies Crestor (Joint pain) Problems Ongoing - Any problem that you are currently receiving treatment for. Aspirin long-term use Asymptomatic microscopic hematuria Benign essential hypertension BPH with urinary obstruction BPH without urinary obstruction Dyslipidemia Elevated PSA GERD (gastroesophageal reflux disease) Kidney stones Mixed hyperlipidemia Obstructive hydronephrosis Palpitation Phimosis Ureteral stone with hydronephrosis Urgency of urination Vitamin D deficiency Weak urine stream Patient Survey You may receive a survey via text or e-mail asking about your office visit. Please share your experience with us by completing your survey. We appreciate your feedback and thank you for choosing us for your care. Patient Portal You may access all of your results and other medical record information on our secure patient portal. If you are not signed up for this yet, please contact [email or web address] at [phone] to get signed up today. Language Information Language assistance services are available as needed. Normal [facility] Pathology Request for Lab Co rpon 02-21-2024 Pathology Request for Lab [place] Normal [facility] Comment on above: Order Comment: PATHO LOGY GI SPECIMEN Result Comment: See report. Scanned copy available in EMR. PERFORMED BY: [place] [address] PATHOLOGIST AUTOMATIC GLUING MACHINE OPERATOR CRISTAL CAIN M.D. Performed By: #### P ATH TO [facility] #### [address] Ambulatory Visit Summaryon 0 11-16-2023 Ambulatory Visit Summary Ambulatory Visit Summary GERI NICKERSON :1955 Visit Date:11/16/2023 Ambulatory Visit Instructions Your Care Team Attending Physician - Thelma Martinez MD Primary Care Physician - JUSTINO PETTY MD This Is Your Medications List chondroitin-glucosami ne (Osteo Bi-Flex) ezetimibe (ezetimibe 10 mg Tab) losartan (losartan 100 mg Tab) omega-3 polyunsaturated fatty acids (Holtwood-3) Procedures Performed Transrectal biopsy of prostate using ultrasound (US) guidance (05/20/2020), Colonoscopy (2003), Tonsillectomy. What to do next Scheduled Follow-Up Appointments Tuesday 9:45 AM EDT With: Juan JONES, Thelma Cazares Where: [facility] Normal [facility] CHEMISTRYOrdered By: SYSTEM SYSTEM on 11-16-2023 Free PSA [Mass/Vol] 0.6 ng/mL Invalid Interpretation Code Remisol [facility] Comment on above: Interpretive Data: T he concentration of free PSA and total PSA determined with assays from different manufacturers can vary due to differences in assay methods and specificity. Values obtained with different head packager's assays cannot be used interchangeably. The methodology used to obtain this result was chemiluminescence using [employer]'s Access Hybritech PSA reagent and Access Hybritech [...] used for this result was chemiluminescence using [employer]'s Access Hybritech PSA reagent. Ambulatory Visit Summaryon 1 05-16-2022 Ambulatory Visit Summary GERI NICKERSON :1955 Visit Date:03/16/2023 Ambulatory Visit Instructions Your Diagnosis Kidney stones Gross hematuria Elevated PSA BPH without urinary obstruction Tests Performed Urnls Dip Stick Auto w/o Microscopy POC 89135 Your Care Team Attending Physician - Thelma Martinez MD Primary Care Physician - JSUTINO PETTY MD This Is Your Medications List Contact prescribing physician if questions or concerns chondroitin-glucosami ne (Osteo Bi-Flex) ezetimibe (ezetimibe 10 mg Tab) losartan (losartan 100 mg Tab) omega-3 polyunsaturated fatty acids (Holtwood-3) Procedures Performed Transrectal biopsy of prostate using ultrasound (US) guidance (05/20/2020), Colonoscopy (2003), Tonsillectomy. Discharge Vitals Heart Rate (Peripheral) 80 Respiratory Rate 16 Blood Pressure 132/74 Height 175 cm Height 69 in Weight 91 kg Weight 200.2 lb BMI 29.71 What to do next Scheduled Follow-Up Appointments Tuesday 9:45 AM EDT With: Juan JONES, Thelma Cazares Where: [facility] ED Note-Physicianon 03-16-20 ED Note-Physician [id number] .00TIFF Normal [facility] Screenson 03-16-2023 Screens [id number] 1.00TIFF Normal [facility] Screens [id number] .00TIFF Normal [facility] Urology Office/Clinic Noteon 03-16-2023 Urology Office/Clinic Note Chief Complaint ER f/u HPI Staff Last seen in our office 11/17/22 due to elevated PSA & BPH. Scheduled for 1yr PSA F/T 11/23/23. Pt is here today to f/u to [facility] ER 01/31/23 CC: Lt flank pain and blood in urine. Denied Hx of Kidney Stones. CT ap 01/31/23 NEG C&S DC'd home with Tylenol #20, Tamsulosin 0.4mg #7 & Keflex 500mg TID x7days Pt then returned to [facility] ER 02/06/23 CC: Lt Flank Pain [...] Pt is here today to f/u to [facility] ER 01/31/23 CC: Lt flank pain [...] at this time. (more content not included)... Normal [facility] Comment on above: Result Comment: Elec tronically Signed By: Thelma Martinez MD\.br\Date and Time Signed: 03/16/23 20:34 EDT\.br\Electronically Co-Signed By: Argentina Rhoades.br\Date and Time Co-Signed: 03/16/23 11:04 EDT RAD - Ultrasound Reporton RAD - Ultrasound Report [id number] .00TIFF Normal [facility] ED Note-Physicianon 02-04-20 ED Note-Physician [id number] .00CD:127 Normal [facility] Office Visiton 08-13-2022 Follow-up visit [id number] Geri Nickerson Peter 1955 M Date Provider Department Center 08/13/2022 JOHN VENCES [facility] Family History Problem Relation Age of Onset Coronary artery disease Father Coronary artery disease Brother Family Status - Relation Status Age at Father Brother Level of Service:85389 [place] OFFICE/OUTPATIENT ESTABLISHED LOW MDM 20-29 MIN Reason for Visit and Comments: echo results [Other] - Patient denies any problems or concerns Normal [facility] Office Visiton 05-21-2022 Follow-up visit [id number] KrishanGeri 1955 M Date Provider Department Center 05/21/2022 PATRICIA MARR [facility] Family History Problem Relation Age of Onset Coronary artery disease Father Coronary artery disease Brother Family Status - Relation Status Age at Father Brother Level of Service:75569 UT OFFICE/OUTPATIENT ESTABLISHED SF MDM 10-19 MIN Reason for Visit and Comments: Hyperlipidemia [182] Hypertension [468241] Normal [facility] CBC AUTO DIFFon 10-16-2021 BASO # 0.1 103/ul Normal 0.0-0.[address] [facility] Comment on above: Performed By: #### C BC #### [facility] [address] [place] [address] Dr. Yesenia Stratton Basophils/100 WBC (Bld) 0.7 % Normal 0.2-2.[address] [facility] Comment on above: Performed By: #### C BC #### [facility] [address] [place] [address] Dr. Yesenia Stratton EO # 0.1 103/ul Normal 0.0-0.[address] [facility] Comment on above: Performed By: #### C BC #### [facility] [address] [place] [address] Dr. Yesenia Stratton Eosinophils/100 WBC (Bld) 1.0 % Normal 0.9-7.[address] [facility] Comment on above: Performed By: #### C BC #### [facility] [address] [address] [address] Yesenia Stratton Erythrocyte distribution width (RBC) [Ratio] 12.7 % Normal 11.0-15.[address] [facility] Comment on above: Performed By: #### C BC #### [facility] [address] [address] [address] Yesenia Stratton Hematocrit (Bld) [Volume fraction] 54.4 % Critically high 42.0-54.[address] [facility] Comment on above: Performed By: #### C BC #### [facility] [address] [place] [address] Dr. Yesenia Stratton Hemoglobin (Bld) [Mass/Vol] 18.7 g/dL Critically high 14.0-18.[address] [facility] Comment on above: Performed By: #### C BC #### [facility] [address] [address] [address] Yesenia Stratton IG # 0.05 10e3/ul Critically high 0.00-0.03 [facility] Comment on above: Performed By: #### C BC #### [facility] [address] [place] [address] Dr. Yesenia Stratton IG % 0.6 % Critically high 0.0-0.5 [facility] Comment on above: Performed By: #### C BC #### [facility] [address] [place] [address] Dr. Yesenia Stratton LYMPH # 2.4 103/ul Normal 1.2-3.8 [facility] Comment on above: Performed By: #### C BC #### [facility] [address] [address] [address] Yesenia Stratton Lymphocytes/100 WBC (Bld) 29.0 % Normal 20.5-60.[address] [facility] Comment on above: Performed By: #### C BC #### [facility] [address] [place] [address] Dr. Yesenia Stratton MANUAL DIFF REQ NO Normal [facility] Comment on above: Performed By: #### C BC #### [facility] [address] [place] [address] Dr. Yesenia Stratton MCH (RBC) [Entitic mass] 30.0 pg Normal 25.9-34.[address] [facility] Comment on above: Performed By: #### C BC #### [facility] [address] [place] [address] Dr. Yesenia Stratton MCHC (RBC) [Mass/Vol] 34.4 g/dL Normal 29.9-35.[address] [facility] Comment on above: Performed By: #### C BC #### [facility] [address] [place] [address] Dr. Yesenia Stratton MCV (RBC) [Entitic vol] 87.2 fL Normal 80.0-94.[address] [facility] Comment on above: Performed By: #### C BC #### [facility] [address] [place] [address] Dr. Yesenia Stratton MONO # 0.8 103/ul Normal 0.3-0.[address] [facility] Comment on above: Performed By: #### C BC #### [facility] [address] [place] [address] Dr. Yesenia Stratton Monocytes/100 WBC (Bld) 9.8 % Normal 1.7-12.[address] [facility] Comment on above: Performed By: #### C BC #### [facility] [address] [place] [address] Dr. Yesenia Stratton NEUT # 4.8 103/ul Normal 1.4-6.5 [facility] Comment on above: Performed By: #### C BC #### [facility] [address] [place] [address] Dr. Yesenia Stratton Neutrophils/100 WBC (Bld) 58.9 % Normal 43.0-75.0 [facility] Comment on above: Performed By: #### C BC #### [facility] [address] [place] [address] Dr. Yesenia Stratton Platelet mean volume (Bld) [Entitic vol] 9.4 fL Critically low 9.5-13.[address] [facility] Comment on above: Performed By: #### C BC #### [facility] [address] [place] [address] Dr. Yesenia Stratton PLT 260 103/ul Normal 150-[address] [facility] Comment on above: Performed By: #### C BC #### [facility] [address] [place] [address] Dr. Yesenia Stratton RBC 6.24 106/ul Critically high 4.70-6.10 [facility] Comment on above: Performed By: #### C BC #### [facility] [address] [place] [address] Dr. Yesenia Stratton WBC 8.2 103/ul Normal 4.0-11.[address] [facility] Comment on above: Performed By: #### C BC #### [facility] [address] [place] [address] Dr. Yesenia Stratton GLYCOHEMOGLOBIN A1Con 2021 ADA RECOMMENDATION SEE BELOW Normal [facility] Comment on above: Result Comment: ADA RECOMMENDED LIMIT 4.0 - 6.0 ADA THERAPEUTIC TARGET < 7.0 ACTION SUGGESTED > 7.0 Performed By: #### A 1C #### [facility] [address] [place] [address] Dr. Yesenia Stratton Glucose [Mass/Vol] 108 mg/dL Normal [facility] Comment on above: Performed By: #### A 1C #### [facility] [address] [place] [address] Dr. Yesenia Stratton HbA1c (Bld) [Mass fraction] 5.4 % Normal 4.5-6.[address] [facility] Comment on above: Performed By: #### A 1C #### [facility] [address] [place] [address] Dr. Yesenia Stratton LIPID PROFILEon 10-16-2021 CHOL-HDL RATIO NORM SEE BELOW Normal [facility] Comment on above: Result Comment: 3.3 - 4.4 LOW RISK 4.4 - 7.1 AVERAGE RISK 7.1 - 11.0 MODERATE RISK >11.0 HIGH RISK Performed By: #### B MP, LIPID, TSH, LIVER #### [facility] [address] [address] [address] Yesenia Stratton Cholesterol [Mass/Vol] 225 mg/dL Critically high <=[address] [facility] Comment on above: Performed By: #### B MP, LIPID, TSH, LIVER #### [facility] [address] [address] [address] Yesenia Stratton Cholesterol in HDL [Mass/Vol] 32 mg/dL Critically low 40-[address] [facility] Comment on above: Performed By: #### B MP, LIPID, TSH, LIVER #### [facility] [address] [place] [address] Dr. Yesenia Stratton Cholesterol in LDL [Mass/Vol] 150.6 mg/dL Normal [facility] Comment on above: Performed By: #### B MP, LIPID, TSH, LIVER #### [facility] [address] [place] [address] Dr. Yesenia Stratotn Cholesterol.total/Chol esterol in HDL [Mass ratio] 7.0 {ratio} Normal [facility] Comment on above: Performed By: #### B MP, LIPID, TSH, LIVER #### [facility] [address] [address] [address] Yesenia Stratton HDL NORMAL > or = 60 mg/dl - LO W CARDIOVASCULAR RISK <40 mg/dl - HIGH CARDIOVASCULAR RISK Normal [facility] Comment on above: Performed By: #### B MP, LIPID, TSH, LIVER #### [facility] [address] [place] [address] Dr. Yesenia Stratton LDL CALC NORMAL SEE BELOW Normal [facility] Comment on above: Result Comment: <100 mg/dl OPTIMAL 100 - 129 mg/dl NEAR OR ABOVE OPTIMAL 130 - 159 mg/dl BORDERLINE HIGH 160 - 189 mg/dl HIGH >190 mg/dl VERY HIGH Performed By: #### B MP, LIPID, TSH, LIVER #### [facility] [address] [place] [address] Dr. Yesenia Stratton Triglyceride [Mass/Vol] 212 mg/dL Critically high <=150 [facility] Comment on above: Performed By: #### B MP, LIPID, TSH, LIVER #### [facility] [address] [address] [address] Yesenia Stratton VLDL CALC 42.4 mg/dL Normal [facility] Comment on above: Performed By: #### B MP, LIPID, TSH, LIVER #### [facility] [address] [place] [address] Dr. Yesenia Stratton LIVER PROFILEon 10-16-2021 Albumin [Mass/Vol] 4.0 g/dL Normal 3.4-5.0 [facility] Comment on above: Performed By: #### B MP, LIPID, TSH, LIVER #### [facility] [address] [place] [address] Dr. Yesenia Stratton Albumin/Globulin [Mass ratio] 1.1 {ratio} Normal [facility] Comment on above: Performed By: #### B MP, LIPID, TSH, LIVER #### [facility] [address] [place] [address] Dr. Yesenia Stratton ALP [Catalytic activity/Vol] 61 U/L Normal 46-[address] [facility] Comment on above: Performed By: #### B MP, LIPID, TSH, LIVER #### [facility] [address] [place] [address] Dr. Yesenia Stratton ALT [Catalytic activity/Vol] 33 U/L Normal 16-[address] [facility] Comment on above: Performed By: #### B MP, LIPID, TSH, LIVER #### [facility] [address] [place] [address] Dr. Yesenia Stratton AST [Catalytic activity/Vol] 22 U/L Normal 15-37 [facility] Comment on above: Performed By: #### B MP, LIPID, TSH, LIVER #### [facility] [address] [place] [address] Dr. Yesenia Stratton BILI, CONJUGATED 0.1 mg/dL Normal 0.0-0.2 [facility] Comment on above: Performed By: #### B MP, LIPID, TSH, LIVER #### [facility] [address] [place] [address] Dr. Yesenia Stratton Bilirubin [Mass/Vol] 0.9 mg/dL Normal 0.2-1.[address] [facility] Comment on above: Performed By: #### B MP, LIPID, TSH, LIVER #### [facility] [address] [place] [address] Dr. Yesenia Stratton Globulin (S) [Mass/Vol] 3.6 g/dL Normal [facility] Comment on above: Performed By: #### B MP, LIPID, TSH, LIVER #### [facility] [address] [place] [address] Dr. Yesenia Stratton Protein [Mass/Vol] 7.6 g/dL Normal 6.4-8.2 [facility] Comment on above: Performed By: #### B MP, LIPID, TSH, LIVER #### [facility] [address] [place] [address] Dr. Yesenia Stratton PROF CHEM 8 (BAS METB)on Anion gap [Moles/Vol] 13.2 mmol/L Normal [facility] Comment on above: Performed By: #### B MP, LIPID, TSH, LIVER #### [facility] [address] [place] [address] Dr. Yesenia Stratton Calcium [Mass/Vol] 9.0 mg/dL Normal 8.5-10.1 [facility] Comment on above: Performed By: #### B MP, LIPID, TSH, LIVER #### [facility] [address] [place] [address] Dr. Yesenia Stratton Chloride [Moles/Vol] 104 mmol/L Normal 98-[address] [facility] Comment on above: Performed By: #### B MP, LIPID, TSH, LIVER #### [facility] [address] [place] [address] Dr. Yesenia Stratton CO2 [Moles/Vol] 26.9 mmol/L Normal 21.0-32.0 [facility] Comment on above: Performed By: #### B MP, LIPID, TSH, LIVER #### [facility] [address] [place] [address] Dr. Yesenia Stratton Creatinine [Mass/Vol] 0.98 mg/dL Normal 0.70-1.[address] [facility] Comment on above: Performed By: #### B MP, LIPID, TSH, LIVER #### [facility] [address] [place] [address] Dr. Yesenia Stratton EGFR-AF LUXEMBOURGER >60 Normal >=60 [facility] Comment on above: Performed By: #### B MP, LIPID, TSH, LIVER #### [facility] [address] [place] [address] Dr. Yesenia Stratton EGFR-NON AF LUXEMBOURGER >60 Normal >=[address] [facility] Comment on above: Performed By: #### B MP, LIPID, TSH, LIVER #### [facility] [address] [place] [address] Dr. Yesenia Stratton Glucose [Mass/Vol] 93 mg/dL Normal 74-106 [facility] Comment on above: Performed By: #### B MP, LIPID, TSH, LIVER #### [facility] [address] [place] [address] Dr. Yesenia Stratton Potassium [Moles/Vol] 4.1 mmol/L Normal 3.5-5.[address] [facility] Comment on above: Performed By: #### B MP, LIPID, TSH, LIVER #### [facility] [address] [place] [address] Dr. Yesenia Stratton Sodium [Moles/Vol] 140 mmol/L Normal 136-145 [facility] Comment on above: Performed By: #### B MP, LIPID, TSH, LIVER #### [facility] [address] [place] [address] Dr. Yesenia Stratton Urea nitrogen [Mass/Vol] 20.0 mg/dL Critically high 7.0-18.[address] [facility] Comment on above: Performed By: #### B MP, LIPID, TSH, LIVER #### [facility] [address] [place] [address] Dr. Yesenia Stratton Urea nitrogen/Creatinine [Mass ratio] 20.4 mg/mg Normal [facility] Comment on above: Performed By: #### B MP, LIPID, TSH, LIVER #### [facility] [address] [place] [address] Dr. Yesenia Stratton TSHon 10-16-2021 TSH 2.533 uIU/mL Normal 0.358-3.740 [facility] Comment on above: Performed By: #### B MP, LIPID, TSH, LIVER #### [facility] [address] [place] [address] Dr. Yesenia Stratton TSH RANGE SEE BELOW Normal [facility] Comment on above: Result Comment: <0.3 4 UIU/ml HYPERTHYROID 0.34-5.60 UIU/ml EUTHYROID >5.60 UIU/ml HYPOTHYROID Performed By: #### B MP, LIPID, TSH, LIVER #### [facility] [address] [place] [address] Dr. Yesenia Stratton VITAMIN D 25 OHon 10-16-2021 VIT D 25-OH 38.2 ng/mL Normal [facility] Comment on above: Performed By: #### V ITKAILEE, PSASC #### [facility] [facility] [address] [place] [address] Dr. Yesenia Stratton VIT D RANGES SEE BELOW Normal [facility] Comment on above: Result Comment: <20 ng/mL Vit D deficient 20 - <30 ng/mL Vit D insufficient 30 - 100 ng/mL Vit D sufficient >100 ng/mL Potential Toxicity Performed By: #### V ITAD, PSASC #### [facility] [address] [place] [address] Dr. Yesenia Stratton Vital Signs Date Time Vital Sign Value Performing Clinician Facility 01-28-2025 11:39-0400 Body height 175.26 cm Justino Petty MD Work Phone: [facility] 01-28-2025 11:39-0400 Body mass index (BMI) [Ratio] 29.7 kg/m2 Justino Petty MD Work Phone: [facility] 01-28-2025 11:39-0400 Body temperature 97.5 [degF] Justino Petty MD Work Phone: [facility] 01-28-2025 11:39-0400 Body weight 91.17 kg Justino Petty MD Work Phone: [facility] 01-28-2025 11:39-0400 Diastolic blood pressure 78 mm[Hg] Justino Petty MD Work Phone: [facility] 01-28-2025 11:39-0400 Heart rate 73 /min Justino Petty MD Work Phone: [facility] 01-28-2025 11:39-0400 Respiratory rate 18 /min Justino Petty MD Work Phone: [facility] 01-28-2025 11:39-0400 Systolic blood pressure 134 mm[Hg] Justino Petty MD Work Phone: [facility] 12-24-2024 06:29-0400 Body height 175.26 cm Justino Petty MD Work Phone: [facility] 12-24-2024 06:29-0400 Body weight 90.71 kg Justino Petty MD Work Phone: [facility] 02-06-2024 09:03-0400 Body height 175.[address] [employer] Work Phone: [facility] 02-06-2024 09:03-0400 Body mass index (BMI) [Ratio] 30.54 kg/m2 Court Farhan DO Work Phone: [facility] 02-06-2024 09:03-0400 Body weight 93.[address] Farhan DO Work Phone: [facility] 02-06-2024 09:03-0400 Diastolic blood pressure 76 mm[Hg] Court Farhan DO Work Phone: [facility] 02-06-2024 09:03-0400 Heart rate 67 /min Court Lymb[employer] DO Work Phone: [facility] 02-06-2024 09:03-0400 Respiratory rate 16 /min Court Lymbix DO Work Phone: [facility] 02-06-2024 09:03-0400 SaO2% (BldA) [Mass fraction] 98 % Court Real DO Work Phone: [facility] 02-06-2024 09:03-0400 Systolic blood pressure 138 mm[Hg] Court Real DO Work Phone: [facility] 01-27-2024 10:32-0400 Body height 175.3 cm Justino Petty MD Work Phone: [facility] 01-27-2024 10:32-0400 Body mass index (BMI) [Ratio] 30.72 kg/m2 Justino Petty MD Work Phone: [facility] 01-27-2024 10:32-0400 Body temperature 97.5 [degF] Justino Petty MD Work Phone: [facility] 01-27-2024 10:32-0400 Body weight 94.35 kg Justino Petty MD Work Phone: [facility] 01-27-2024 10:32-0400 Diastolic blood pressure 86 mm[Hg] Justino Petty MD Work Phone: [facility] 01-27-2024 10:32-0400 Heart rate 66 /min Justino Petty MD Work Phone: [facility] 01-27-2024 10:32-0400 Respiratory rate 20 /min Justino Petty MD Work Phone: [facility] 01-27-2024 10:32-0400 SaO2% (BldA) [Mass fraction] 97 % Justino Petty MD Work Phone: [facility] 01-27-2024 10:32-0400 Systolic blood pressure 166 mm[Hg] Justino Petty MD Work Phone: [facility] 11-23-2023 09:55-0400 Diastolic blood pressure 84 mm[Hg] Thelma Monicaariadna [facility] 11-23-2023 09:55-0400 Heart rate 78 /min Thelma Lue [facility] 11-23-2023 09:55-0400 Systolic blood pressure 138 mm[Hg] Thelma Lue [facility] 03-16-2023 09:55-0400 Blood Pressure Location Thelma Lue [facility] 03-16-2023 09:55-0400 Diastolic blood pressure 74 mm[Hg] Thelma Lue [facility] 03-16-2023 09:55-0400 Heart rate 80 /min Thelma Lue [facility] 03-16-2023 09:55-0400 Respiratory rate 16 /min Thelma Lue [facility] 03-16-2023 09:55-0400 Systolic blood pressure 132 mm[Hg] Thelma Lue [facility] 11-17-2022 10:16-0400 Blood Pressure Location Thelma Lue [facility] 11-17-2022 10:16-0400 Diastolic blood pressure 78 mm[Hg] Thelma Lue [facility] 11-17-2022 10:16-0400 Heart rate 78 /min Thelma Lue [facility] 11-17-2022 10:16-0400 Respiratory rate 16 /min Thelma Lue [facility] 11-17-2022 10:160400 Systolic blood pressure 132 mm[Hg] Thelma Martinez [facility] Encounters Encounter Date Encounter Type Care Provider Facility Start: 06-12-2025 ambulatory Thelma Martinez Facility:[facility] Start: 06-10-2025 ambulatory Thelma KtPhilippe Andersonariadna Facility:[facility] [place] Start: 01-28-2025 End: 01-28-2025 ambulatory Justino Petty MD Work Phone: [facility] Work Phone: Start: 01-28-2025 End: 01-28-2025 Patient encounter procedure Justino Petty MD -[facility] [place] Work Phone: Start: 12-24-2024 End: 12-24-2024 Patient encounter procedure Thelma Meraz MD -[facility] Work Phone: Start: 12-24-2024 End: 12-24-2024 ambulatory Justino Petty MD Work Phone: [facility] Work Phone: Start: 11-28-2024 End: 11-28-2024 ambulatory Thelma Martinez Facility:[facility] Start: 11-28-2024 End: 11-28-2024 Patient encounter procedure Thelma Martinez [facility] Start: 11-27-2024 End: 11-27-2024 ambulatory SOLANGE BYNUM Facility:[facility] [place] Start: 11-27-2024 End: 11-27-2024 Patient encounter procedure SOLANGE BYNUM [facility] Start: 02-21-2024 End: 02-21-[address] [facility] Work Phone: Start: 02-21-2024 End: 02-21-[address] Real Work Phone: [facility] [place] [facility] Start: 02-06-2024 End: 02-06-[address] Real DO Work Phone: [facility] Start: 02-06-2024 End: 02-06-[address] Real DO Work Phone: [facility] Start: 02-06-2024 End: 02-06-[address] Real DO Work Phone: [facility] Comment on above: Encounter for screen ing colonoscopy (Primary Dx) Start: 02-06-2024 End: 02-06-[address] Not Available Start: 01-27-2024 End: 01-27-2024 Bamboo flowsheet Justino Petty MD Work Phone: [facility] Start: 01-27-2024 End: 01-27-2024 Bamboo flowsheet Justino Petty MD Work Phone: [facility] Start: 01-27-2024 End: 01-27-2024 Patient encounter procedure Justino Petty MD Work Phone: [facility] Work Phone: Start: 01-27-2024 End: 01-27-2024 Postop follow up visit related to original px Justino Petty MD Work Phone: [facility] Comment on above: Medicare annual well ness visit, subsequent (Primary Dx); Essential hypertension, benign (CMS/HCC); Dyslipidemia (CMS/HCC); Encounter for long-term current use of medication; Screening PSA (prostate specific antigen); Obesity (BMI 30-39.9) Start: 01-27-2024 End: 01-27-2024 ambulatory JUSTINO PETTY Not Available Start: 11-23-2023 ambulatory Thelma M. Lue Facility:[facility] Start: 11-23-2023 End: 11-23-2023 Patient encounter procedure Thelma KtPhilippe Andersone [facility] Start: 11-16-2023 End: 11-16-2023 Lab Drop off Thelma KtPhilippe Andersone [facility] Start: 11-16-2023 End: 11-16-2023 ambulatory Thelma Andersone Facility:[facility] Start: 11-16-2023 End: 11-16-2023 Patient encounter procedure Thelma KtPhilippe Andersone [facility] Start: 03-16-2023 End: 03-16-2023 ambulatory Thelma Andersone Facility:[facility] Start: 03-16-2023 End: 03-16-2023 Patient encounter procedure Thelma MerazPhilippe Andersone [facility] Start: 11-17-2022 End: 11-17-2022 Patient encounter procedure Thelma MerazPhilippe Andersone [facility] Start: 08-13-2022 End: 08-13-2022 ambulatory [facility] Start: 06-18-2022 End: 06-18-2022 ambulatory [facility] Start: 05-21-2022 End: 05-21-2022 ambulatory [facility] Start: 05-19-2022 End: 05-19-2022 Patient encounter procedure Thelma KtPhilippe Andersone [facility] Start: 05-11-2022 End: 05-12-[address] JUSTINO PETTY Facility:[facility] Start: 10-22-2021 Encounter for genera l adult medical examination without abnormal findings DR JUSTINO PETTY [facility] Start: 10-16-2021 End: 10-17-[address] JUSTINO PETTY Facility:[facility] Start: 10-16-2021 End: 10-17-2021 Encounter for general adult medical examination without abnormal findings DR JUSTINO PETTY Facility:[facility] Procedures Date Procedure Procedure Detail Performing Clinician Start: 12-24-2024 MR prostate wo/w con Shilpa Petty MD Work Phone: Start: 05-11-[address] JUSTINO MCKEON Comment on above: Performed By: #### P SAD #### [facility] [address] [place] [address] Dr. Yesenia Stratton Start: 10-16-[address] JUSTINO MCKEON Comment on above: Performed By: #### V ITAD, PSASC #### [facility] [address] [address] [address] Yesenia Stratton Start: 05-20-2020 Transrectal biopsy o f prostate using ultrasound guidance Thelma Martinez Start: 05-16-2003 Colonoscopy Thelma Martinez Tonsillectomy Thelma Martinez Plan of Treatment Date Care Activity Detail Author Start: 01-28-2025 End: 01-28-2025 Patient encounter procedure 01/28/2025 11:30 AM EDT Office Visit [facility] [address] [place] [id number] Justino Petty MD [address] [place] [address] [facility] Start: 01-26-2025 Medicare Annual Well ness (AWV) Medicare Annual Wellness (AWV) [facility] Start: 02-21-2024 [facility] Start: 02-06-2024 End: 02-06-2024 Patient encounter procedure 02/06/2024 9:00 AM EDT Office Visit [facility] [address] [place] [phone] FarhanCourt milton DO [address] [place] [address] Arrived [facility] Comment on above: Arrived Start: 01-27-2024 End: 01-26-2025 Basic metabolic 1998 panel - Serum or Plasma Basic metabolic panel Lab Routine Essential hypertension, benign (CMS/HCC) Expected: 01/27/2024 (Approximate), Expires: 01/26/2025 [facility] Work Phone: Comment on above: Expected: 01/27/2024 (Approximate), Expires: 01/26/2025 Start: 01-27-2024 End: 01-26-2025 CBC W Auto Differential panel - Blood CBC and differential Lab Routine Encounter for long-term current use of medication Expected: 01/27/2024 (Approximate), Expires: 01/26/2025 [facility] Comment on above: Expected: 01/27/2024 (Approximate), Expires: 01/26/2025 Start: 01-27-2024 End: 01-26-2025 Hepatic function 2000 panel - Serum or Plasma Hepatic function panel Lab Routine Encounter for long-term current use of medication Expected: 01/27/2024 (Approximate), Expires: 01/26/2025 [facility] Comment on above: Expected: 01/27/2024 (Approximate), Expires: 01/26/2025 Start: 01-27-2024 End: 01-26-2025 Lipid 1996 panel - Serum or Plasma Lipid panel Lab Routine Dyslipidemia (CMS/HCC) Expected: 01/27/2024 (Approximate), Expires: 01/26/2025 [facility] Comment on above: Expected: 01/27/2024 (Approximate), Expires: 01/26/2025 Start: 01-27-2024 End: 01-26-2025 Prostate specific Ag [Mass/volume] in Serum or Plasma PSA Lab Routine Screening PSA (prostate specific antigen) Expected: 01/27/2024 (Approximate), Expires: 01/26/2025 [facility] Comment on above: Expected: 01/27/2024 (Approximate), Expires: 01/26/2025 Start: 01-27-2024 End: 01-26-2025 Thyrotropin [Units/volume] in Serum or Plasma TSH Lab Routine Obesity (BMI 30-39.9) Expected: 01/27/2024 (Approximate), Expires: 01/26/2025 [facility] Comment on above: Expected: 01/27/2024 (Approximate), Expires: 01/26/2025 Start: 01-27-2024 End: 01-27-2024 Patient encounter procedure 01/27/2024 10:30 AM EDT Office Visit [facility] [address] [place] [address] Justino Petty MD [address] [place] [phone] Arrived [facility] Comment on above: Arrived Start: 01-15-2024 Influenza vaccination Influenza Vacc ine (#1) [facility] Start: 2022 Pneumococcal Vaccine : 65+ Years (1 of 1 - PCV) Pneumococcal Vaccine: 65+ Years (1 of 1 - PCV) [facility] Start: 1963 Pneumococcal Vaccine : 65+ Years (1 of 2 - PCV) Pneumococcal Vaccine: 65+ Years (1 of 2 - PCV) [facility] Start: 1955 Medicare Annual Well ness (AWV) Medicare Annual Wellness (AWV) [facility] Start: 1955 Screening for malign ant neoplasm of colon [facility] Comprehensive metabo lic 2000 panel - Serum or Plasma [facility] Immunizations Immunization Date Immunization Notes Care Provider Fa immanuel 03-06-2021 influenza virus vaccine, unspecified formulation Thelma Martinez [facility] 03-06-2021 SARS-CoV-2 (COVID-19 ) mRNA BNT-162b2 vax Thelma Lue [facility] 07-23-2020 SARS-CoV-2 (COVID-19 ) Ad26 vaccine, recombinant Thelma Lue [facility] 02-14-2020 SARS-CoV-2 (COVID-19 ) Ad26 vaccine, recombinant Thelma Lue [facility] Payers Date Payer Category Payer Self-pay [id number] 2024 Medicare [id number] 2022 Private Health Insurance [id number] 2022 Unknown [id number] 2022 Unknown [facility] [id number] 2022-Present [phone] [address] [facility] [place] [address] [id number] 2022 Medicare [id number] 2022 Medicare [id number] 1957 Unknown [id number] .593 1957 Unknown [id number] [id number] .593 1957 Unknown [id number] 2.16.840.1.438150.3.579.2 .727 1957 Unknown [id number] 2.16.840.1.540505.3.579.2 .727 1957 Unknown [id number] 2.16.840.1.482201.3.579.2 .727 1957 Unknown [id number] 2.16.840.1.458974.3.579.2 .727 1957 Unknown [id number] 2.16.840.1.381069.3.579.2 .1259 1957 Unknown [id number] 2.16.840.1.147451.3.579.2 .1259 1957 Unknown [id number] 2.16.840.1.930865.3.579.2 .727 1957 Unknown [id number] 2.16.840.1.384873.3.579.2 .727 1957 Unknown [id number] 2.16.840.1.205414.3.579.2 .72 1957 Unknown [id number] 2.16.840.1.326281.3.579.2 .727 1957 Unknown [id number] 2.16.840.1.127386.3.579.2 .727 1957 Unknown [id number] 2.16.840.1.090824.3.579.2 .727 Private Health Insurance [facility] [id number] Unknown [id number] Unknown [id number] [id number] .531 Unknown [id number] .531 Social History Date Type Detail Facility Start: 06-10-2020 End: 01-28-2025 Tobacco smoking status Ex-smoker (finding) [facility] Start: 01-27-2024 End: 02-06-2024 Sex Assigned At Male [facility] Tobacco smoking status Never [facility] Start: 1955 Sex Assigned At Male [facility] Tobacco smoking stat us NHIS Tobacco smoking consumption unknown [facility] Start: 1955 Sex assigned at Not on file [facility] Start: 01-27-2024 Tobacco smoking status NHIS Smokes tobacco daily [facility] History of tobacco use Cigarette Smoker [facility] Start: 01-27-2024 End: 02-06-2024 Tobacco use and exposure Smokeless tobacco non-user [facility] Start: 01-27-2024 End: 02-06-2024 History of Social function [facility] Do you belong to any clubs or organizations such as evangelical groups, unions, fraternal or athletic groups, or school groups? No [facility] Are you now , , , , never or living with a partner? [facility] How often to you hav e a drink containing alcohol? 4 or more times a week [facility] How many standard dr inks containing alcohol do you have on a typical day? 1 or 2 [facility] How often do you hav e 6 or more drinks on 1 occasion? Never [facility] How hard is it for y ou to pay for the very basics like food, housing, medical care, and heating Somewhat hard [facility] Do you feel stress - tense, restless, nervous, or anxious, or unable to sleep at night because your mind is troubled all the time - these days [OSQ] Not at all [facility] (I/We) worried wheth er (my/our) food would run out before (I/we) got money to buy more. Never true [facility] History of tobacco use Current smoker [facility] Start: 02-06-2024 Alcoholic beverage intake Current drinker of alcohol (finding) [facility] Sexual Orientation [facility] Sex Male (finding) [facility] Functional Status Date Assessment Result Facility 11-23-2023 Functional Status N/A [facility] 03-16-2023 Functional Status N/A [facility] 11-17-2022 Functional Status N/A [facility] Clinical Notes 05-19-2022 to 11-28-2024 Court Real - 02/06/2024 9:00 AM Tami Petty MD - 01/27/2024 11:11 AM Tami Petty MD - 01/27/2024 10:30 AM EDTLaboratory Note Date & Type Note Facility 11-28-2024 Hospital Discharge instructions Patient Education 11/28/2024 10:26:44 Magnetic Resonance Imaging Magnetic Resonance Imaging Magnetic resonance imaging (MRI) is a painless test that produces detailed images of organs and tissues inside the body without using X-rays. During an MRI, strong magnets and radio waves work together to form images. MRI images may provide more details about a medical condition than X-rays, CT scans, and ultrasounds can provide. For a standard MRI, you will lie on a table that slides into a tunnel. In an open MRI, the tunnel will be open at the sides. In some cases, dye (contrast material) may be injected into your bloodstream to make the MRI images even clearer. Tell a health care provider about: Any allergies you have. All medicines you are taking, including vitamins, herbs, eye drops, creams, and [id number] medicines. Any surgeries you have had. Any medical conditions you have. Any metal you may have in your body. The magnets used in an MRI can cause metal objects in your body to move. Metal can also make it difficult to get clear images. Objects that may contain metal include: ?Any joint replacement (prosthesis), such as an artificial knee or hip. ?An implanted defibrillator, pacemaker, or neurostimulator. ?A metallic ear implant (cochlear implant). ?An artificial heart valve. ?A metallic object in the eye. ?Metal splinters. ?Bullet fragments. ?A port for delivering insulin or chemotherapy. Any tattoos you have. Some of the darker inks can cause problems with testing. Whether you are using a control implant such as an intrauterine device (IUD). Whether you are , may be , or are . Any fear of cramped spaces (claustrophobia). If this is a problem, it usually can be managed with medicines given prior to the MRI. What are the risks? Generally, this is a safe test. However, problems may occur, such as: If you have metal in your body and it is close to the area being tested, it may be hard to get high-quality images. If you are , you should avoid MRI tests during the first three months of . An MRI may affect an unborn baby. If dye is used: ?You may need to stop until the dye leaves your body naturally, if this applies. ?There is a risk of an allergic reaction to the dye. You can take medicines to prevent this reaction or to treat it if you have allergy symptoms. ?The dye can cause damage to your kidneys. Drinking plenty of water before and after the procedure can help prevent this problem. What happens before the procedure? You will be asked to remove all metal, including: ?A watch, jewelry (including jewelry in piercings), and other metal objects. ?Hearing aids. ?Dentures. ?An underwire bra. ?Makeup. Some makeup contains small amounts of metal. Braces and fillings are normally not a problem. If you are , ask your health care provider if you need to pump before your test. You may need to stop temporarily if dye will be used. What happens during the procedure? You may be given earplugs or headphones to listen to music. The MRI machine can be noisy. You will lie flat on your back on a long table. If dye will be used, an IV will be inserted into one of your veins. Dye will be injected into your IV and travel through your bloodstream. The table will slide into a tunnel that has magnets inside. When you are inside the tunnel, you will still be able to talk to your health care provider. You will be asked to lie very still while images are taken. Your health care provider will tell you when you can move. You may have to wait a few minutes to make sure that the images produced during the test are clear. When all images are produced, the table will slide out of the tunnel. The procedure can last from 30 minutes to over an hour. The procedure may vary among health care providers and hospitals. What can I expect after the procedure? You may be taken to a recovery area if sedation medicines were used. Your blood pressure, heart rate, breathing rate, and blood oxygen level will be monitored until you leave the hospital or clinic. If dye was used: ?It will leave your body through your urine within a day. You may be told to drink plenty of fluids to help flush the dye out of your system. ?Do not breastfeed your child until your health care provider says that this is safe. Follow these instructions at home: You may return to your normal activities right away, or as told by your health care provider. It is up to you to get your test results. Ask your health care provider, or the department that is doing the test, when your results will be ready. Keep all follow-up visits. This is important. Talk with your health care provider about what your test results mean. Summary Magnetic resonance imaging (MRI) is a painless test that produces detailed pictures of the inside of your body without using X-rays. Strong magnets and radio waves work together to form very detailed and clear images. In some cases, dye (contrast material) may be injected into your body to make MRI images even clearer. Before your MRI, be sure to tell your health care provider about any metal you may have in your body. Talk with your health care provider about what your test results mean. This information is not intended to replace advice given to you by your health care provider. Make sure you discuss any questions you have with your health care provider. Document Revised: 01/13/2022 Document Reviewed: 09/03/2020 [employer] Patient Education 2023 [employer]. 11/28/2024 10:26:39 Prostate Cancer Screening Prostate Cancer Screening Prostate [...] treatment? Where to find more information The [place] [employer]: www.cancer.org [place] [employer]: www.auanet.org Contact a health care [...] provider. Document Revised: 10/26/2021 Document Reviewed: 10/26/2021 [employer] Patient Education 2023 [employer]. Follow Up Care 11/23/2023 10:25:15 With:Thelma Martinez MD, URL, URO Address: [address] [place] [phone] When: Unknown Comments:f/u pending prostate MRI results [facility] 11-28-2024 Note Patient Education Oncology Prostate Cancer Screening Prostate cancer screening is [...] recommendations. In general, screening is recommended if: ??? You are age 50 to 70 and [...] have a 10- to 15-year life expectancy. ??? You are younger than age 50, and you have these risk factors: ? Having a father, brother, or uncle who has been diagnosed with prostate cancer. The risk is higher if your family member's cancer occurred at an early age or if you have multiple family members with prostate cancer at an early age. ? Being a male who is Black or is of [place] or sub-Saharan descent. In general, screening is not recommended if: ??? You are younger than age 40. ??? You are between the ages of 40 and 49 and you have no risk factors. ??? You are 70 years of age or [...] high PSA levels may be caused by: ??? Prostate cancer. ??? An enlarged prostate that is not caused by cancer (benign prostatic hyperplasia, or BPH). This condition is very common in older men. ??? A prostate gland infection (prostatitis) or urinary tract infection. ??? Certain medicines such as male hormones (like [...] you may need more tests, such as: ??? A physical exam to check the size of your prostate gland, if not done as part of screening. ??? Blood and imaging tests. ??? A procedure to remove tissue samples from your prostate gland for testing (biopsy). This is the only way to know for certain if you have prostate cancer. What are the benefits of prostate cancer screening? Screening can help to identify cancer at an early stage, before symptoms start and when the cancer can be treated more easily. ??? There is a small chance that screening [...] Questions to ask your health care provider ??? When should I start prostate cancer screening? What is my risk for prostate cancer? How often do I need screening? What type of screening tests do I need? How do I get my test results? What do my results mean? Do I need treatment? Where to find more information ??? The [place] [employer]: www.cancer.org ??? [place] [employer] Association: www.auanet.org Contact a health care provider if: ??? You have difficulty urinating. ??? You have pain when you urinate or ejaculate. ??? You have blood in your urine or semen. ??? You have pain in your back or in the area of your prostate. Summary ??? Prostate cancer is a common type of cancer in men. The prostate gland (more content not included)... [facility] 02-06-2024 History of Present illness Narrative General Surgery H&P Geri Nickerson 1955 Geri Nickerson is a 68 y.o. male presents with chief complaint of Colonoscopy (Pt presents today for a colonoscopy consult. Pt states that he did have a colonoscopy about 10 years ago and it was normal. Pt denies any abdominal pain, changes in bowel movements or any rectal bleeding. Pt denies any family hx of colon cancer. ) Denies abdominal pain. Denies family hx of colon cancer. Denies melena or hematochezia. Denies changes in bowel habits. Denies changes in caliber of stools. Denies hx of unplanned weight loss. Denies fevers, chills, or sweats. Denies nausea or vomiting. Last colonoscopy was around 2013. SUBJECTIVE: MEDICATIONS: ALLERGIES Current Outpatient Medications Medication Instructions bisacodyl (DULCOLAX) 5 mg, Oral, Once, Do not crush, chew, or split. Take as detailed on clinic hand out for colonoscopy prep ezetimibe (ZETIA) 10 mg, Oral, Daily losartan (COZAAR) 100 mg, Oral, Daily polyethylene glycol (PEG) 3350 (GLYCOLAX) 238 g, Oral, Once, Take as detailed from clinic hand out for colonoscopy prep No Known Allergies PAST MEDICAL HISTORY: SOCIAL HISTORY SURGICAL HISTORY: Past Medical History: Diagnosis Date Diverticulitis of colon Hypertension ([facility]/H[facility]) Social History Tobacco Use Smoking status: Former Current packs/day: 0.50 Average packs/day: 0.5 packs/day for 10.0 years (5.0 ttl pk-yrs) Types: Cigarettes Smokeless tobacco: Never Substance Use Topics Alcohol use: Yes Alcohol/week: 7.0 standard drinks of alcohol Types: 7 Shots of liquor per week Drug use: Never History reviewed. No pertinent surgical history. Family History Problem Relation Name Age of Onset Cancer Sister Lavinia Nickerson No Known Allergies History reviewed. No pertinent surgical history. Tobacco Use: Medium Risk (02/06/2024) Patient History Smoking Tobacco Use: Former Smokeless Tobacco Use: Never Passive Exposure: Not on file Alcohol Use: Not At Risk (01/27/2024) AUDIT-C Frequency of Alcohol Consumption: 4 or more times a week Average Number of Drinks: 1 or 2 Frequency of Binge Drinking: Never Depression: Not at risk (01/27/2024) PHQ-2 PHQ-2 Score: 0 Physical Activity: Insufficiently Active (01/27/2024) Exercise Vital Sign Days of Exercise per Week: 3 days Minutes of Exercise per Session: 40 min REVIEW OF SYMPTOMS: Review of Systems All other systems reviewed and are negative. 10 systems were reviewed. Positives noted above. Remainder are negative per CMS guidelines. OBJECTIVE: Visit Vitals BP 138/76 Pulse 67 Resp 16 Ht 5' 9 Wt 206 lb 12.8 oz SpO2 98% BMI 30.54 kg/m Smoking Status Former BSA 2.14 m Physical Exam Vitals reviewed. General: AAOx3, NAD Head: atraumatic normocephalic Neck: trachea midline. No masses or lymphadenopathy Heart: Regular rate and rhythm Lungs: equal chest rise and fall, non labored breathing Abdomen: soft, nontender, and non distended Ext: motor 5/5 all extremities with no gross deformities Psych: alert and oriented, behavior appropriate ASSESSMENT AND PLAN: Assessment/Plan Diagnoses and all orders for this visit: Encounter for screening colonoscopy - bisacodyl (Dulcolax) 5 MG EC tablet; Take 1 tablet (5 mg) by mouth 1 time for 1 dose Do not crush, chew, or split. Take as detailed on clinic hand out for colonoscopy prep - polyethylene glycol, PEG, 3350 (Glycolax) 17 GM/SCOOP powder; Take 238 g by mouth 1 (one) time for 1 dose Take as detailed from clinic hand out for colonoscopy prep Plan: Patient is average risk for colon cancer. Colonoscopy can be scheduled electively. Patient informed of the risks of procedure which include but not limited to bleeding, perforation, and risks of anesthesia. Patient understood risks and signed informed consent for the procedure under monitored anesthesia care. Handout for bowel prep provided in clinic. Patient was informed of the need for a ride home from the hospital and the need for someone to be with them for the following 24 hrs post procedure. Thank you, K Ramin Farhan, DO documented in this encounter [facility] 01-27-2024 History of Present illness Narrative Associated Problem(s): Medicare annual wellness visit, subsequent Due for labs. Over 10 years since last colonoscopy and refer. Discussed proper diet and regular aerobic exercise. Need aerobic exercise 5-6 days a week for 30 minutes at a time. Smaller portions and limit total calories. Tetanus every 10 years. Advised not to smoke. Discussed daily Aspirin therapy. Images from the original note were not included. Subjective Patient ID: Geri Nickerson is a 68 y.o. male who presents for Medicare Annual Wellness Visit Subsequent (Wellness/). Presents for medicare wellness visit. Patient feels well today. Weight unchanged over the past year. Active and walks several days a week. Tries to watch diet and eat healthy. Increased fruits and vegetables. Smaller portions and limits snacking. Tries to limit total daily calories. Due for labs. 10 years since last colonoscopy. Checking BP PRN and typically controlled. BP elevated today. Taking medication daily and tolerating without side effects. Review of Systems Constitutional: Negative for fatigue. Respiratory: Negative for cough, shortness of breath and wheezing. Cardiovascular: Negative for chest pain and palpitations. Gastrointestinal: Negative for abdominal pain, diarrhea, nausea and vomiting. Genitourinary: Negative for dysuria. Objective Physical Exam Constitutional: General: He is not in acute distress. Appearance: Normal appearance. HENT: Head: Normocephalic. Right Ear: Tympanic membrane and ear canal normal. Left Ear: Tympanic membrane and ear canal normal. Eyes: Extraocular Movements: Extraocular movements intact. Pupils: Pupils are equal, round, and reactive to light. Cardiovascular: Rate and Rhythm: Normal rate and regular rhythm. Heart sounds: No murmur heard. No friction rub. No gallop. Pulmonary: Breath sounds: Normal breath sounds. No wheezing, rhonchi or rales. Abdominal: General: Bowel sounds are normal. There is no distension. Palpations: Abdomen is soft. Tenderness: There is no abdominal tenderness. There is no guarding or rebound. Musculoskeletal: Left lower leg: No edema. Neurological: Mental Status: He is alert. Assessment/Plan Problem List Items Addressed This Visit Essential hypertension, benign (CMS/HCC) Relevant Orders Basic metabolic panel Dyslipidemia (CMS/HCC) Relevant Orders Lipid panel Encounter for long-term current use of medication Relevant Orders CBC and differential Hepatic function panel Medicare annual wellness visit, subsequent - Primary Due for labs. Over 10 years since last colonoscopy and refer. Discussed proper diet and regular aerobic exercise. Need aerobic exercise 5-6 days a week for 30 minutes at a time. Smaller portions and limit total calories. Tetanus every 10 years. Advised not to smoke. Discussed daily Aspirin therapy. Screening PSA (prostate specific antigen) Relevant Orders PSA Obesity (BMI 30-39.9) Relevant Orders TSH documented in this encounter [facility] 11-23-2023 Hospital Discharge instructions Patient Education 11/23/2023 [...] treatment? Where to find more information The [place] [employer]: www.cancer.org [place] [employer] Association: www.auanet.org Contact a health care [...] provider. Document Revised: 10/26/2021 Document Reviewed: 10/26/2021 [employer] Patient Education 2022 [employer]. Follow Up Care 11/17/2022 10:47:13 With:Thelma Martinez MD, URL, URO Address: [address] [place] [phone] When: Unknown [facility] 02-04-2023 Hospital Discharge instructions Follow Up Care 02/04/2023 14:44:46 With:Thelma Martinez MD, URL, URO Address: When: Unknown Comments:Appt in 11/2023 [facility] 11-17-2022 Hospital Discharge instructions Patient Education 11/17/2022 [...] treatment? Where to find more information The [place] [employer]: www.cancer.org [place] [employer] Association: www.auanet.org Contact a health care [...] provider. Document Revised: 10/26/2021 Document Reviewed: 10/26/2021 [employer] Patient Education 2022 [employer]. Follow Up Care 05/19/2022 12:21:58 With:Juan JONES, Thelma Cazares, THOMAS, URO Address: When:Within 1 Year(s) Comments:w/ PSA F&T [facility] 08-13-2022 Note [facility] Consult Note Reason [...] he sleeps only 7 hours and had TERESITA screening done about 5 years ago which [...] antihypertensive drugs. John Muller MD Cardiac Electrophysiology [facility] 05-24-2022 Note -they have beccome i nfrequent, states he cannot even recall last time he felt that -never took BB medications -will order echo to assess for any CM or LA enlargement per previous plan for follow up [facility] 05-21-2022 Note [facility] Consul t Note Reason for visit: [...] of echo Patricia Tsai NP Cardiac Electrophysiology [facility] 05-19-2022 Hospital Discharge instructions Patient Education [...] one of these risk factors: ?Being of -[place] descent. ?Having a family history of prostate [...] you: Are older than age 55. Are -[place]. Have a father, brother, or uncle who [...] 02/10/2018 Document Revised: 04/14/2018 Document Reviewed: 02/10/2018 [employer] Patient Education 2020 [employer]. Follow Up Care 03/24/2021 11:36:08 With:Thelma Martinez MD, URL, URO Address: [address], [facility] [place] [address] [phone] When:Within 6 Month(s) Comments:w/ PSA F&T [facility] Evaluation + Plan note Future Appointments Appointment Date:11/17/2022 10:15:00 AM Scheduled Provider:Thelma Martinez MD Location:[facility] Appointment Type:URO Office Visit Diagnostic Tests PendingPSA Free & Total 05/19/22 [facility] Evaluation + Plan note Future Appointments Appointment Date:11/23/2023 09:45:00 AM Scheduled Provider:Thelma Martinez MD Location:[facility] Appointment Type:URO Office Visit Diagnostic Tests PendingPSA Free & Total 11/17/22 [facility] Evaluation + Plan note Future Appointments Appointment Date:11/23/2023 09:45:00 AM Scheduled Provider:Thelma Martinez MD Location:[facility] Appointment Type:URO Office Visit [facility] Evaluation + Plan note Future Appointments Appointment Date:11/28/2024 09:45:00 AM Scheduled Provider:Thelma Martinez MD Location:[facility] Appointment Type:URO Office Visit Future Scheduled TestsPSA Free & Total 11/23/23 [facility] Evaluation + Plan note Future Appointments Appointment Date:11/28/2024 09:45:00 AM Scheduled Provider:Thelma Martinez MD Location:[facility] Appointment Type:URO Office Visit [facility] Evaluation note No assessment inform ation available [facility] Work Phone: Evaluation note Diagnosis Medicare annual wellness visit, subsequent- Primary Essential hypertension, benign (CMS/HCC) Essential hypertension, benign Dyslipidemia (CMS/HCC) Other and unspecified hyperlipidemia Encounter for long-term current use of medication Screening PSA (prostate specific antigen) Special screening for malignant neoplasm of prostate Obesity (BMI 30-39.9) [facility] Diagnosis Encounter for screening colonoscopy- Primary [facility] Diagnosis Onset Date Resolution Status Admit Date Benign essential hypertension acute January 28, 2025 11:11am Dyslipidemia acute January 282024 11:11am Encounter for long-term (current) use of medications acute Jan 11:11am Medicare annual wellness visit, subsequent acute January 11:11am Screening PSA (prostate specific antigen) acute January 11:11am [facility] Work Phone: Hospital course Narrative No data available for this section [facility] Hospital Discharge instructions No data available for this section [facility] [place] Progress note No data available for this section [facility] reason for referral (narrative)No reason for referral [facility] Work [facility]: Summary Purpose Family History Relationship Condition Age at Onset Recorded Date/T jere father Heart disease Unknown Unknown family member Unknown mother Heart disease Unknown Advance Directives Advance Directive Response Recorded Date/ Time Advance Directives No January 12:56pm Chief Complaint and Reason for Visit Chief Complaint Admit Date R97.20 December 24, 2024 2: 02pm Reason for Visit Admit Date Benign essential hypertension January 28, 2025 11:11am Dyslipidemia January 28, 2025 11:11am Encounter for long-term (current) use of medications January 28, 2025 11:11am Medicare annual wellness visit, subseque nt January 28, 2025 11:11am Screening PSA (prostate specific antigen ) January 28, 2025 11:11am Chief Complaint Admit Date R97.December 24, 2024 2: 02pm Additional Source Comments (unrecognized sect ion and content) No Status Records FoundNo Status Records FoundNo Status Records FoundNo Status Records FoundNo Status Records FoundNo Status Records FoundNo Status Records FoundNo Status Records FoundNo Status Records FoundNo Status Records Found INFORMATION SOURCE (unrecogn ized section and content) DATE CREATED AUTHOR 05/14/2022 [facility] DATE CREATED AUTHOR AUTHOR'S ORGANIZ ATION 08/18/2022 [facility] DATE CREATED AUTHOR AUTHOR'S ORGANIZ ATION 11/21/2023 [facility] DATE CREATED AUTHOR AUTHOR'S ORGANIZ ATION 02/07/2024 [facility] DATE CREATED AUTHOR AUTHOR'S ORGANIZ ATION 12/01/2024 [facility] DATE CREATED AUTHOR AUTHOR'S ORGANIZ ATION 12/02/2024 [facility] DATE CREATED AUTHOR AUTHOR'S ORGANIZ ATION 12/03/2024 [facility] DATE CREATED AUTHOR AUTHOR'S ORGANIZ ATION 12/04/2024 [facility] DATE CREATED AUTHOR AUTHOR'S ORGANIZ ATION 12/29/2024 [facility] DATE CREATED AUTHOR AUTHOR'S ORGANIZ ATION 12/30/2024 [facility] Patient Care team informatio n (unrecognized section and content) Team Status: Inactive Member Role Status Dates Court Real DO Attending Provider Active Star t: February 21, 2024 End: February 21, 2024 [employer] Relationship Specialty Start Date End Date Justino Petty MD [address] [place] [phone] PCP - General Family Medicine 01/27/24 [employer] Relationship Specialty Start Date End Date Justino Petty MD [address] [place] [phone] PCP - General Family Medicine 01/27/24 [employer] Relationship Specialty Start Date End Date Justino Petty MD [address] [place] [phone] PCP - General Family Medicine 01/27/24 [employer] Relationship Specialty Start Date End Date Justino Petty MD [address] [place] [phone] PCP - General Family Medicine 01/27/24 Team Status: Active Member Role Status Dates Justino Petty MD Primary Care Provider Active Team Status: Inactive Member Role Status Dates Thelma Martinez MD Attending Provider Active Start : December 24, 2024 End: December 24, 2024 Justino Petty MD Primary Care Provider Active S tart: December 24, 2024 End: December 24, 2024 Team Status: Inactive Member Role Status Dates Justino Petty MD Primary Care Provider Active S tart: January 28, 2025 End: January 28, 2025 Justino Petty MD Attending Provider Active Star t: January 28, 2025 End: January 28, 2025 Goals (unrecognized section and content) Goals may be documented in a n alternate section Reason for Visit (unrecogniz ed section and content) Reason Comments Medicare Annual Wellness Visit Subsequen t Wellness Reason Comments Colonoscopy Pt presents today fo r a colonoscopy consult. Pt states that he did have a colonoscopy about 10 years ago and it was normal. Pt denies any abdominal pain, changes in bowel movements or any rectal bleeding. Pt denies any family hx of colon cancer. FOR RECORDS PERTAINING TO PATIENTS WHO ARE [...] BE BASED ON THE PRIMARY CLINICAL RECORDS. [facility] [employer] [facility]. provides no warranty or guarantee of the accuracy or completeness of information in this document.
== END 2025-01-29 11:24 | disposition home or self-care (01) ==
LOC: LAB 11:25
PROVIDERS: PCP Family Medicine; Visit Provider Family Medicine
DX: Z79.899 Other long term (current) drug therapy (principal); R53.83 Other fatigue; E78.5 Hyperlipidemia, unspecified
CPT/HCPCS: 36415; 80053; 80061; 83721; 84443; 85025